=== PATIENT | female | born 1945 | race Caucasian/White ===

== ENCOUNTER → 2016-11-03 | Outpatient (CLI) | payer OTHER ==
[~2016-11-03] MED LIST: IOPAMIDOL (ISOVUE-300) 100 ML BTL IV ONE
--- NOTE | 2016-11-03 17:00 | CT ---
CT Chest, With Contrast Indication: Follow up pulmonary nodule. Technique: 5-mm thick collimated slices were obtained through the chest following uneventful adminis tration of 90 mL of Isovue-300. Sagittal multiplanar reconstructions were performed of the thoracic spine. Dose reduction techniques were utilized. Findings: The triangular-shaped subpleural 4-mm right middle lobe pulmonary nodule on image #144 of series #4 is unchanged since May 2012. The previously referenced 3-mm right upper lobe nodule is no longer evident. A new round noncalcified 3-mm pulmonary nodule has developed in the superior segm ent right lower lobe on image #93 of series #4. No other pulmonary nodules. The lungs remain well a erated and clear. The heart size is normal. The thoracic aorta is normal caliber. Calcified coronary plaque is grossl y unchanged. No enlarged lymph node or mass has developed throughout the axilla, mediastinum, pulmonary sally, or i justin portion of the upper abdomen. No pericardial or pleural effusion. No bone lesion or compressi on fracture. A loop recorder in the subcutaneous fat of the anterior left chest wall and a small hia gayla hernia are unchanged. Impression: 1. New 3-mm probably benign pulmonary nodule since August 2016. Recommend follow-up noncontrast c hest CT in six months utilizing low-dose protocol. 2. A 4-mm right middle lobe pulmonary nodule, unchanged since May 2012. 3. No acute process. Comment: The results were conveyed shortly after study completion.
== END ==
LOC: FIMAGING 09:37
PROVIDERS: ATTEND Internal Medicine
DX: R91.1 Solitary pulmonary nodule (principal); I10 Essential (primary) hypertension
CPT/HCPCS: 71260; Q9967

== ENCOUNTER → 2017-01-02 | Outpatient (CLI) | payer OTHER | LOC: FIMAGING 10:19 | PROVIDERS: ATTEND Internal Medicine | DX: M81.0 Age-related osteoporosis without current pathological fracture (principal) ==

== ENCOUNTER 2017-05-10 10:40 | Emergency (ER) | payer OTHER ==
--- NOTE | 2017-05-10 10:53 | EDPHY ---
H & P Time Seen by Provider: 05/10/17 10:48 HPI/ROS: CHIEF COMPLAINT: Heavy hard and irregular heartbeat HISTORY OF PRESENT ILLNESS: Patient is a history of an ablation and cardiac stenting. She sees [facility]. She has an implanted loop recorder was getting a CT scan for a lung nodule today and approximately 10:35 a.m. felt her heart "have heavy heartbeats" which were fast and irregular, not associated with chest pain or syncope or shortness of breath. REVIEW OF SYSTEMS: Eye: no change in vision ENT: no sore throat Cardiac: HPI Pulmonary: no cough or SOB Abdomen: no vomiting, diarrhea, abdominal pain Musculoskeletal: no back pain Skin: no rash Neuro: no headache Constitutional: no fever : no urinary symptoms A comprehensive 10 point review of systems is otherwise negative aside from elements mentioned in the history of present illness. PAST MEDICAL HISTORY: Includes hypertension, childhood polio, hyperlipidemia, cholecystectomy. Cardiac stenting and ablation. Loop recorder. Social history: General Appearance: Alert and conversant, cooperative. Eyes: No scleral icterus. ENT, Mouth: Normal mucous membranes. Respiratory: Normal respiratory effort, breath sounds equal, lungs are clear to auscultation. Cardiovascular: Regular rate and rhythm. Frequent extrasystoles. Gastrointestinal: Abdomen is soft and non tender. Neurological: Alert and oriented x3. Normally conversant. Face symmetric, normal movement and sensation in all extremities. Skin: Warm and dry, no rashes. Musculoskeletal: No peripheral edema and no joint swelling. Psychiatric: Not agitated. Emergency Department course/MDM: Annikafrancisca contacted to interrogate her recorder. EKG show PACs which are certainly a possible cause for her symptoms. Plan for chemistries and troponin. Per Linq interrogator, only artifact, no malignant dysrhythmia. 1237: Discussed with Dora Briscoe from [facility]. Agrees to disposition, will follow up as outpatient. Calcium noted to be low but also albumin is low. I think this can be safely followed up as an outpatient. I think the likelihood of malignant dysrhythmia is low. I think the likelihood of acute coronary syndrome is low. Smoking Status: Never smoked Constitutional: Initial Vital Signs Temperature (C) 36.7 C 05/10/17 10:42 Heart Rate 82 05/10/17 10:42 Respiratory Rate 18 05/10/17 10:42 Blood Pressure 138/72 H 05/10/17 10:42 O2 Sat (%) 98 05/10/17 10:42 O2 Delivery Mode Room Air Allergies/Adverse Reactions: atorvastatin calcium [From Lipitor] Allergy (Severe, Verified 05/10/17 10:41) myalgia gluten Allergy (Severe, Verified 05/10/17 10:41) Milk Containing Products [dairy] Allergy (Severe, Verified 05/10/17 10:41) Slope And Derivatives Allergy (Verified 05/10/17 10:41) Home Medications: Medication Instructions Recorded Herbals/Supplements -Info Only 1 each PO DAILY 04/20/13 Simvastatin [Zocor] 10 mg PO DAILY 08/23/15 Ascorbic Acid [Vitamin C 500 mg 500 mg PO BID@,05/08/16 (*)] Aspirin EC [Aspirin EC 81 mg (*)] 81 mg PO DAILY 05/08/16 Calcium Carbonate [Oyster Shell 500 mg PO BID@,05/08/16 Calcium 500 mg (*)] Cholecalciferol Vit D3 [Vitamin D3 10,000 units PO MOTUWETHFR 05/08/16 2000 units tab (OTC)] Vitamin B Complex [B Complex] 1 each PO DAILY 08/16/16 Acetaminophen [Tylenol 325mg (*)] 325 - 650 mg PO Q4HRS PRN #0 tab 08/18/16 Clopidogrel Bisulfate [Plavix (*)] 75 mg PO DAILY #30 tab 08/20/16 Simvastatin [Zocor] 20 mg PO DAILY #30 08/20/16 Bystolic 05/10/17 Medical Decision Making - Diagnostics EKG Interpretation: 12-lead EKG interpreted by me; official reading is in trace master. My interpretation is sinus rhythm rate 79 with multiple atrial premature complexes and partial left bundle branch block Differential Diagnosis: Differential for sensation of palpitations considered including but not limited to ventricular tachycardia, atrial fibrillation, PVC, Pac - Data Points Laboratory Results: Laboratory Results 05/10/17 11:07 05/10/17 11:07 05/10/17 05/10/17 05/10/17 11:07 11:07 11:07 WBC 8.12 10^3/uL 10^3/uL (3.80-9.50) RBC 4.53 10^6/uL 10^6/uL (4.18-5.33) Hgb 14.2 g/dL g/dL (12.6-16.3) Hct 42.6 % % (38.0-47.0) MCV 94.0 fL fL (81.5-99.8) MCH 31.3 pg pg (27.9-34.1) MCHC 33.3 g/dL g/dL (32.4-36.7) RDW 13.9 % % (11.5-15.2) Plt Count 305 10^3/uL 10^3/uL (150-400) MPV 9.8 fL fL (8.7-11.7) Neut % (Auto) 58.7 % % (39.3-74.2) Lymph % (Auto) 27.5 % % (15.0-45.0) [place] % (Auto) 8.7 % % (4.5-13.0) Eos % (Auto) 3.7 % % (0.6-7.6) Baso % (Auto) 1.2 % % (0.3-1.7) Nucleat RBC Rel Count 0.0 % % (0.0-0.2) Absolute Neuts (auto) 4.76 10^3/uL 10^3/uL (1.70-6.50) Absolute Lymphs (auto) 2.23 10^3/uL 10^3/uL (1.00-3.00) Absolute Monos (auto) 0.71 10^3/uL 10^3/uL (0.30-0.80) Absolute Eos (auto) 0.30 10^3/uL 10^3/uL (0.03-0.40) Absolute Basos (auto) 0.10 10^3/uL 10^3/uL (0.02-0.10) Absolute Nucleated RBC 0.00 10^3/uL 10^3/uL (0-0.01) Immature Gran % 0.2 % % (0.0-1.1) Immature Gran # 0.02 10^3/uL 10^3/uL (0.00-0.10) Sodium 143 mEq/L mEq/L (134-144) Potassium 3.3 mEq/L L mEq/L (3.5-5.2) Chloride 117 mEq/L H mEq/L (97-110) Carbon Dioxide 20 mEq/l L mEq/l (22-31) Anion Gap 6 mEq/L L mEq/L (8-16) BUN 13 mg/dL mg/dL (7-23) Creatinine 0.6 mg/dL mg/dL (0.6-1.0) Estimated GFR > 60 Glucose 68 mg/dL L mg/dL (70-100) Calcium 7.3 mg/dL L mg/dL (8.5-10.4) Troponin I < 0.012 ng/mL ng/mL (0-0.034) Albumin 2.8 g/dL L g/dL (3.5-5.0) Departure - Departure Disposition: Home, Routine, Self-Care Clinical Impression: Palpitations, PAC (premature atrial contraction) Condition: Good Instructions: Palpitations (ED), Premature Atrial Contractions (ED) Additional Instructions: Your noted to have a low calcium and albumin level on blood testing today. This probably means that your calcium level is relatively normal, but your total body protein is low. Follow-up in the next week or 2 with your doctor about this. I discussed your case with [facility] and they will call you to follow-up this week. Referrals: Gracie Barton MD [Primary Care Provider] - As per Instructions
--- NOTE | 2017-05-10 10:58 | CPEKG ---
Heart Rate: 79 RR Interval: 759 P-R Interval: 160 QRSD Interval: 108 QT Interval: 408 QTC Interval: 468 P [place]: -4 QRS [place]: -12 T Wave [place]: 82 EKG Severity - ABNORMAL ECG - EKG Impression: SINUS RHYTHM EKG Impression: MULTIPLE ATRIAL PREMATURE COMPLEXES EKG Impression: INCOMPLETE LEFT BUNDLE BRANCH BLOCK EKG Impression: ANTERIOR Q WAVES, POSSIBLY DUE TO ILBBB Electronically Signed By: Fadi Washington 10-May-2017 10:59:51
[2017-05-10 11:19] LABS: % IMMATURE GRANULYOCYTES 0.2 % (0.0-1.1); ABSOLUTE IMMATURE GRANULOCYTES 0.02 10^3/uL (0.00-0.10); ADD DIFF? NO; ADD MORPH? NO; ADD SCAN? NO; ATYPICAL LYMPHOCYTE FLAG 10 (0-99); FRAGMENT RBC FLAG 0 (0-99); HEMATOCRIT 42.6 % (38.0-47.0); HEMOGLOBIN 14.2 g/dL (12.6-16.3); LEFT SHIFT FLG 0 (0-99); LIPEMIA HEMOLYSIS FLAG 80 (0-99); MEAN CELL HEMOGLOBIN 31.3 pg (27.9-34.1); MEAN CELL HEMOGLOBIN CONCENTR. 33.3 g/dL (32.4-36.7); MEAN PLATELET VOLUME 9.8 fL (8.7-11.7); PLATELET CLUMPS FLAG 0 (0-99); PLATELET COUNT 305 10^3/uL (150-400); RED BLOOD CELL COUNT 4.53 10^6/uL (4.18-5.33); RED CELL DISTRIBUTION WIDTH 13.9 % (11.5-15.2)
[2017-05-10 11:32] LABS: ANION GAP 6 mEq/L (8-16); CALCIUM 7.3 mg/dL (8.5-10.4); CARBON DIOXIDE 20 mEq/l (22-31); CHLORIDE 117 mEq/L (97-110); CREATININE 0.6 mg/dL (0.6-1.0); GLOMERULAR FILTRATION RATE > 60; GLUCOSE 68 mg/dL (70-100); POTASSIUM 3.3 mEq/L (3.5-5.2); SODIUM 143 mEq/L (134-144)
[2017-05-10 11:44] LABS: TROPONIN I < 0.012 ng/mL (0-0.034)
[2017-05-10 12:08] LABS: ALBUMIN 2.8 g/dL (3.5-5.0)
[2017-05-10 12:16] VITALS: RESP 16
[2017-05-10 13:02] VITALS: BP 132/76; PULSE 71; TEMP 98.1; O2SAT 98
== END 2017-05-10 13:02 | disposition home or self-care (01) ==
DX: I49.1 Atrial premature depolarization (principal); I10 Essential (primary) hypertension; Z79.82 Long term (current) use of aspirin; Z95.5 Presence of coronary angioplasty implant and graft

== ENCOUNTER → 2017-05-10 | Outpatient (CLI) | payer OTHER | LOC: FIMAGING 09:51 | PROVIDERS: ATTEND Internal Medicine Critical Care Medicine | DX: R91.8 Other nonspecific abnormal finding of lung field (principal); J45.909 Unspecified asthma, uncomplicated ==

== ENCOUNTER 2017-05-26 11:20 | Inpatient (IN) | payer OTHER ==
--- NOTE | 2017-05-26 11:27 | EDPHY ---
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 The patient has a history of wall motion abnormality thought to be secondary to plaque rupture after an EP procedure, which resulted in stent in August. Since that time she has complained of chest pain with exertion. This morning she was undergoing an ETT in [facility] and again developed exertional sub-sternal chest pain. She was sent immediately to the ED for further evaluation and likely catheterization. REVIEW OF SYSTEMS: Aside from elements discussed in the HPI, a comprehensive 10-point review of systems was reviewed and is negative. PMH:CAD, SVT SOCIAL HISTORY: . Denies alcohol or drug abuse. PHYSICAL EXAM: General:Patient is alert, in no acute distress. ENT:Eyes are normal to inspection. ENT inspection normal. Neck: Normal inspection. Full range of motion. Respiratory:No respiratory distress. Breath sounds normal bilaterally. Cardiovascular: Regular rate and rhythm. Strong peripheral pulses. Normal cap refill. Abdomen:The abdomen is nontender to palpation. There are no peritoneal signs. There are normal bowel sounds. Back: Normal to inspection. No tenderness to palpation. Skin: Normal color. No rash. Warm and dry. Extremities: Normal appearance. Full range of motion. Neuro: Oriented x3. Normal motor function. Normal sensory function. ED Course: 11:[address] Walsh - he will evaluate the patient in the ED. MDM: This patient presents with exertional chest pain during ETT. Her ECG does not reveal STEMI and her troponin is negative. Cardiology would like to take patient urgently to medical laboratory specialist. - Data Points Laboratory Results: 05/26/17 05/26/17 11:30 11:30 WBC Pending RBC Pending Hgb Pending Hct Pending MCV Pending MCH Pending MCHC Pending RDW Pending Plt Count Pending MPV Pending Neut % (Auto) Pending Lymph % (Auto) Pending [place] % (Auto) Pending Eos % (Auto) Pending Baso % (Auto) Pending Nucleat RBC Rel Count Pending Absolute Neuts (auto) Pending Absolute Lymphs (auto) Pending Absolute Monos (auto) Pending Absolute Eos (auto) Pending Absolute Basos (auto) Pending Absolute Nucleated RBC Pending Immature Gran % Pending Immature Gran # Pending Sodium Pending Potassium Pending Chloride Pending Carbon Dioxide Pending Anion Gap Pending BUN Pending Creatinine Pending Estimated GFR Pending Glucose Pending Calcium Pending Troponin I Pending General Time Seen by Provider: 05/26/17 11:25 Initial Vital Signs: Initial Vital Signs Temperature (C) 36.5 C 05/26/17 11:22 Heart Rate 88 05/26/17 11:22 Respiratory Rate 16 05/26/17 11:22 Blood Pressure 154/72 H 05/26/17 11:22 O2 Sat (%) 98 05/26/17 11:22 O2 Delivery Mode Room Air O2 (L/minute) 2 Allergies/Adverse Reactions: atorvastatin calcium [From Lipitor] Allergy (Severe, Verified 05/26/17 15:22) myalgia gluten Allergy (Severe, Verified 05/26/17 15:22) Milk Containing Products [dairy] Allergy (Severe, Verified 05/26/17 15:22) [place]ingley And Derivatives Allergy (Verified 05/26/17 15:22) Home Medications: Medication Instructions Recorded Herbals/Supplements -Info Only 1 each PO DAILY 04/20/13 Aspirin EC [Aspirin EC 81 mg (*)] 81 mg PO DAILY 05/08/16 Calcium Carbonate [Oyster Shell 500 mg PO BID@,12 05/08/16 Calcium 500 mg (*)] Clopidogrel Bisulfate [Plavix (*)] 75 mg PO DAILY #30 tab 08/20/16 Ascorbic Acid [Vitamin C 500 mg 1,000 mg PO DAILY 05/26/17 (*)] Cholecalciferol Vit D3 [Vitamin D3 10,000 units PO MWF 05/26/17 (*)] Fluticasone/Salmeter 250/50Mcg 1 puffs IH BID PRN 05/26/17 [Advair 250/50 (*)] Nebivolol HCl [Bystolic 5 mg (*)] 2.5 mg PO DAILY 05/26/17 Rosuvastatin Calcium [Crestor 20mg 5 mg PO DAILY 05/26/17 (*)] Departure - Departure Disposition: To OP Cath/Surgery Clinical Impression: Chest pain Condition: Fair
--- NOTE | 2017-05-26 11:35 | CPEKG ---
Heart Rate: 73 RR Interval: 822 P-R Interval: 172 QRSD Interval: 110 QT Interval: 392 QTC Interval: 432 P [place]: 65 QRS [place]: -15 T Wave [place]: 84 EKG Severity - ABNORMAL ECG - EKG Impression: SINUS RHYTHM EKG Impression: NONSPECIFIC INTRAVENTRICULAR CONDUCTION DELAY EKG Impression: CONSIDER ANTEROSEPTAL INFARCT Electronically Signed By: Damien Carrizales 27-May-2017 08:15:25
[2017-05-26 11:48] LABS: % IMMATURE GRANULYOCYTES 0.2 % (0.0-1.1); ABSOLUTE IMMATURE GRANULOCYTES 0.02 10^3/uL (0.00-0.10); ADD DIFF? NO; ADD MORPH? NO; ADD SCAN? NO; ATYPICAL LYMPHOCYTE FLAG 10 (0-99); FRAGMENT RBC FLAG 0 (0-99); HEMATOCRIT 44.3 % (38.0-47.0); LEFT SHIFT FLG 0 (0-99); LIPEMIA HEMOLYSIS FLAG 90 (0-99); MEAN CELL HEMOGLOBIN 31.3 pg (27.9-34.1); MEAN CELL HEMOGLOBIN CONCENTR. 33.9 g/dL (32.4-36.7); MEAN CELL VOLUME 92.5 fL (81.5-99.8); MEAN PLATELET VOLUME 9.6 fL (8.7-11.7); PLATELET CLUMPS FLAG 10 (0-99); PLATELET COUNT 282 10^3/uL (150-400); RED BLOOD CELL COUNT 4.79 10^6/uL (4.18-5.33); RED CELL DISTRIBUTION WIDTH 13.8 % (11.5-15.2)
[2017-05-26] MEDS ORDERED: MIDAZOLAM 2 MG/2 ML VIAL ONE ×2 (12:14→13:27)
[2017-05-26] MEDS ORDERED: fentaNYL 100 MCG/2 ML INJ ONE (12:14)
[2017-05-26] MEDS ORDERED: LIDOCAINE 1% 300 MG/30 ML SDV ONE (12:14)
[2017-05-26] MEDS ORDERED: HEPARIN 10,000 UNIT/10 ML MDV ONE (12:15)
[2017-05-26] MEDS ORDERED: IOPAMIDOL (ISOVUE-370) 150 ML BTL IV ONE (12:15)
[2017-05-26] MEDS ORDERED: VERAPAMIL 5 MG/2 ML VIAL ONE (12:15)
[2017-05-26 12:30] LABS: ANION GAP 12 mEq/L (8-16); CALCIUM 9.6 mg/dL (8.5-10.4); CARBON DIOXIDE 22 mEq/l (22-31); CHLORIDE 106 mEq/L (97-110); CREATININE 0.7 mg/dL (0.6-1.0); GLOMERULAR FILTRATION RATE > 60; GLUCOSE 83 mg/dL (70-100); POTASSIUM 4.1 mEq/L (3.5-5.2); SODIUM 140 mEq/L (134-144)
[2017-05-26 12:41] LABS: TROPONIN I < 0.012 ng/mL (0.000-0.034)
[2017-05-26] MEDS ORDERED: CLOPIDOGREL BISULFATE 75 MG TAB ONE (13:32)
[2017-05-26] MEDS ORDERED: NITROGLYCERIN 1,500 MCG/15 ML VIAL MISC ONE (13:33)
[2017-05-26] MEDS ORDERED: BIVALIRUDIN 250 MG/5 ML VIAL IV ONE (13:33)
[2017-05-26] MEDS ORDERED: ACETAMINOPHEN 325 MG TAB PO PRN (15:22)
[2017-05-26] MEDS ORDERED: NITROGLYCERIN 0.4 MG BTL SL PRN (15:22)
[2017-05-26] MEDS ORDERED: ATROPINE SULFATE 1 MG/10 ML SYR IVP PRN (15:22)
[2017-05-26] MEDS ORDERED: NS 1,000 ML IV SCH (15:30)
[2017-05-26] MEDS ORDERED: FLUTICASONE/SALMETER 250/50MCG DISKUS IH PRN (15:32)
--- NOTE | 2017-05-26 15:49 | PDDXCAT ---
Diagnostic Cath Note - . Date: 05/26/17 Community Health Advisor: Nico Indication: other (71-year-old female with history of PCI of the LAD in August 2016. Recent recurrence of chest discomfort. Exercise treadmill test earlier today positive for chest discomfort and ST segment depression.) - Procedure Access: right groin Procedure: left heart catheterization, coronary angiography, left ventriculogram - Materials Left Heart Cath size: 6F Left Heart Cath materials: standard multipack (JL4, JR4, pigtail) - Findings-Left Heart Catheterization LM: Normal. LAD: Fluoroscopy reveals a previously stented segment in the LAD. Angiography demonstrates that the stented segment is 100% occluded with high grade restenosis. The diagonal branch which arose from the stented segment is also occluded. There are [id number] and [id number]-nj-[id number] collaterals to the distal portions of the LAD and diagonal. LCX: Mild irregularities. RCA: Mild irregularities. EDP: 13 mmHg LVEF: 45% Wall motion: Anteroapical hypokinesis. Complications: None Estimated blood loss: <50ml Closure method: manual pressure Assessment: 1) Ischemic cardiomyopathy with mildly reduced LV systolic function. 2) Coronary artery disease as described above. Plan: The patient has developed severe restenosis with total occlusion of her previously placed drug-coated stent at only 9 months following her procedure. The decent caliber and relatively modest length of her stent, should have predicted that she would be at the low end of the range of risk for restenosis. Repeat PCI could be performed. However, I have concerns about repeat restenosis. I am not confident that percutaneous revascularization can provide her with a durable result. At this point we will admit her for observation. I will discuss with her tomorrow the option of coronary bypass grafting. If she declines to consider a surgical option, repeat PCI will be performed. Patient Problems: Problems Problem Status Onset Chest pain Acute AVNRT (AV moe re-entry tachycardia) Acute Atrial flutter Acute Decrease in appetite Acute Dyspnea Acute Generalized weakness Acute Nausea Acute Syncope Acute
[2017-05-27] MEDS: ASPIRIN EC 81 MG TAB PO SCH (08:35)
[2017-05-27] MEDS: ASCORBIC ACID 500 MG TAB PO SCH (08:35)
[2017-05-27] MEDS: CALCIUM CARBONATE 500 MG TAB PO SCH ×2 (08:36→11:20)
[2017-05-27] MEDS: ROSUVASTATIN CALCIUM 10 MG TAB PO SCH (08:36)
[2017-05-27] MEDS: NEBIVOLOL HCL 5 MG TAB PO SCH (08:37)
[2017-05-27] MEDS ORDERED: ROSUVASTATIN CALCIUM 20 MG TAB PO SCH (09:00)
--- NOTE | 2017-05-27 12:12 | PDCARPN ---
Cardiology Progress Note Assessment/Plan: Coronary Artery Disease- has severe restenosis of a single drug-coated stent in the mid LAD just 9 months after placement. Has had recurrent anginal quality chest discomfort. Discussed extensively with patient and family. If she were to undergo repeat PCI, I think her long-term prospects for patency would be significantly reduced. We will consult CT surgery for CABG. Ischemic Cardiomyopathy- LVEF is approximately 45%. This is similar to her LV function at the time of her PCI last August. A subsequent echocardiogram performed in the office suggested that her LV function had improved somewhat following her PCI. No clinical signs of CHF. Hypertension- adequately controlled. SVT/PACs- h/o RF ablation for AVNRT; no recurrent SVT; does notice her PACs. 05/27/17 12:09 Subjective: No complaints. Objective: Vital Signs (8 Hrs) Temp Pulse Resp BP Pulse Ox 05/27/17 08:00 36.4 C 66 23 H 126/71 H 95 Intake/Output (24 Hrs) 05/26/17 05/27/17 05/28/17 05:59 05:59 05:59 Intake Total 1550 Balance 1550 Intake: Oral (ml) 550 IV Infused (ml) 1000 Ns 1,000 ml @ 100 mls/hr 1000 IV CONT FÉLIX Rx#: [id number] Other: Weight 74.843 kg Intake Quantity Yes Sufficient Number of Voids 2 Toilet 2 Result Diagrams: 05/26/17 11:30 05/26/17 12:15 Cardiac Labs: Cardiac Lab Results (72 Hrs) 05/26/17 12:15 Troponin I < 0.012 - Physical Exam Constitutional: WDWN, no apparent distress Eyes: anicteric sclera Ears, Nose, Mouth, Throat: moist mucous membranes Cardiovascular: regular rate and rhythm, no murmurs, no rubs, no gallops Respiratory: clear to auscultate bilat Gastrointestinal: normoactive bowel sounds, no tenderness, no masses Skin: no rashes, no edema Neurologic: AAOx3 Psychiatric: not anxious ICD10 Worksheet Patient Problems: Problems Problem Status Onset Chest pain Acute AVNRT (AV moe re-entry tachycardia) Acute Atrial flutter Acute Decrease in appetite Acute Dyspnea Acute Generalized weakness Acute Nausea Acute Syncope Acute
--- NOTE | 2017-05-27 12:23 | GCON ---
[f rep st] CONSULTATION DATE OF CONSULTATION: 05/27/2017 IMPRESSION: 1. Unstable angina pectoris, status post stenting to the left anterior descending approximately 9 m onths prior. 2. History of atrial tachycardia, status post ablation. 3. Asthma by history. 4. Status post recent cholecystectomy. 5. Status post intussusception as a child. RECOMMENDATIONS: This patient should undergo coronary artery revascularization on this admission du e to crescendo angina status post stenting with a subtotal occlusion of the LAD with collateral flow . Risks and complications were reviewed at length with the patient, her daughter, and her b y telephone. They were well-informed quite cooperative, and understood the risks and complications associated with the procedure as explained. We will obtain carotid ultrasounds and a chest x-ray pr eoperatively. HISTORY: This is a pleasant 71-year-old female who had a PCI of the LAD in August. She also had an ablation for PAT at that time. MEDICAL HISTORY: As stated. SURGERIES: As stated. SOCIALLY: She drinks 1 glass of wine per day, never more. She had minimal exposure to cigarette ab use many years ago. ALLERGIES: She is allergic to gluten. REVIEW OF SYSTEMS: At the present time, all 10 systems are unremarkable except for admitting compla ints. MEDICATIONS: Reviewed. Plavix has been held for 3 days at present. PHYSICAL EXAMINATION: GENERAL: This is a slightly overweight elderly female sitting in a chair, ac companied by her daughter, well informed, quite pleasant, in no apparent distress. VITAL SIGNS: Te mp is 37.6, blood pressure 126/71, pulse 66, respirations 16 on room air with 95% sat. HEENT: Norm ocephalic. PERRLA. EOMI. NECK: Without bruit. Carotid ultrasound is pending. LUNGS: Clear. H EART: Rate is regular without murmur. LUNGS: Clear. ABDOMEN: Protuberant, nontender. Bowel lizette nds are active. RECTAL/GENITAL: Exams were deferred. NEUROLOGIC: She is grossly intact. She has some varicosities in the right lower leg. Pedal pulses are 2+. There is no edema. Please see cath report and labs for details. /[id number]/MODL
--- NOTE | 2017-05-27 12:33 | GHP ---
[f rep st] HISTORY AND PHYSICAL DATE OF ADMISSION: 05/26/2017 REASON FOR ADMISSION: 1. Coronary artery disease, with a history of prior PCI. 2. Recurrent anginal quality chest discomfort. 3. Abnormal exercise treadmill test. HISTORY OF PRESENT ILLNESS: The patient is a 71-year-old female with a history of coronary artery d isease and SVT. In August 2016, she underwent an electrophysiology ablation procedure for SVT by Dr. Carrizales. She subsequently developed significant chest discomfort and evidence for coronary ischemia . She was taken to the cardiac laboratory equipment installer by Dr. Pierre Leiva and was found to have a high-grade steno sis of 80% to 90% in the mid left anterior descending, immediately adjacent to the origin of a princ ipal diagonal branch. She underwent PCI, with placement of a single 3.0 x 24 mm Synergy drug-coated stent in the mid LAD. There was no significant ostial compromise of the diagonal branch. The tim ent had done well subsequently. She was recently bothered with irregular heartbeats. She was scheduled for an interrogation of her [employer] LINQ implantable event recorder. At the time of that interrogation, she mentioned to the device nurse that she had also been experiencing episodes of chest discomfort and pressure with phys ical activity. On that basis, Dr. Carrizales recommended that she undergo an exercise stress test. That s tudy was performed on May 26. She developed chest discomfort and ST segment depression early in exercise. On that basis, she was sent to the [facility] with a plan to under go cardiac catheterization. PAST MEDICAL HISTORY: In addition to her coronary artery disease and arrhythmia history, she had a DVT in 1994, psoriasis, hypertension, hiatal hernia, hyperlipidemia and osteoporosis. MEDICATIONS: Her home medications consist of aspirin 81 mg daily, Bystolic 2.5 mg daily, alendronat e 70 mg once weekly, CoQ10 and Crestor 5 mg daily. ALLERGIES: Lipitor. FAMILY HISTORY: There is a history of CAD in her mother. SOCIAL HISTORY: She is . She has four adult offspring. She is a nonsmoker and does not con sume significant amounts of alcohol. REVIEW OF SYSTEMS: Apart from the palpitations and chest discomfort that prompted this hospital enc ounter, a 10-point review was negative. PHYSICAL EXAMINATION: VITAL SIGNS: Heart rate 88, blood pressure 154/72, room air O2 saturation 98 %. GENERAL: A well-developed, well-nourished woman in no acute distress. She is alert and oriente d x3. HEAD AND NECK: No scleral icterus. Mucous membranes moist. Carotid pulses 2+, without brui ts. CHEST: Lung payton clear to auscultation bilaterally. CARDIAC: Regular rate and rhythm, with a normal S1 and S2. There is no murmur or gallop. ABDOMEN: Soft, nontender, nondistended, with n ormal bowel sounds. EXTREMITIES: 2+ pulses and no peripheral edema. LABORATORY DATA: Sodium 140, potassium 4.1. BUN and creatinine 13 and 0.7. Troponin was normal at less than 0.012. Her CBC is normal. ASSESSMENT: This is a 71-year-old woman with a history of coronary artery disease, with PCI of the LAD performed 9 months ago. She has had recurrent anginal quality chest discomfort, and an exercise treadmill test was abnormal. She just underwent cardiac catheterization and was found to have high -grade restenoses of the mid LAD stent, with essentially 100% occlusion; this also involves the diag onal branch that arises from the stented segment. Her left ventricular ejection fraction is approxi mately 45%, with anteroapical hypokinesis. She does have some minimal [id number] collateralizati on of the LAD. PLAN: At this point, the patient will be placed on the telemetry floor. I will have a discussion w ith the patient and her family about options for a repeat attempt at percutaneous coronary intervent ion versus coronary artery bypass grafting. Based on the aggressive restenoses of her stent within 9 months, I am dubious about the potential for long-term, durable, good revascularization result fro m percutaneous techniques. However, if she is adamant about not wanting surgery, a repeat attempt a t PCI will certainly be entertained. /[id number]/MODL
[2017-05-27 13:15] LABS: HEMATOCRIT 39.5 % (38.0-47.0); HEMOGLOBIN 13.4 g/dL (12.6-16.3); MEAN CELL HEMOGLOBIN 31.5 pg (27.9-34.1); MEAN CELL HEMOGLOBIN CONCENTR. 33.9 g/dL (32.4-36.7); MEAN CELL VOLUME 92.7 fL (81.5-99.8); RED BLOOD CELL COUNT 4.26 10^6/uL (4.18-5.33); RED CELL DISTRIBUTION WIDTH 13.9 % (11.5-15.2)
[2017-05-27] MEDS: MUPIROCIN 2% 22 GM OINT NS SCH (22:50)
[2017-05-28] MEDS ORDERED: NS 1,000 ML IV ONE (06:00)
[2017-05-28] MEDS ORDERED: VERAPAMIL 5 MG, NITROGLYCERIN 2.5 MG, HEPARIN 500 UNIT, SODIUM BICARBONATE 0.2 MEQ in L... MISC ONE (06:00)
[2017-05-28] MEDS: ASCORBIC ACID 500 MG TAB PO SCH (07:56)
[2017-05-28] MEDS: CALCIUM CARBONATE 500 MG TAB PO SCH ×2 (07:57→11:42)
[2017-05-28] MEDS: ASPIRIN EC 81 MG TAB PO SCH (07:57)
[2017-05-28] MEDS: NEBIVOLOL HCL 5 MG TAB PO SCH (08:02)
[2017-05-28] MEDS: ROSUVASTATIN CALCIUM 10 MG TAB PO SCH (08:05)
[2017-05-28] MEDS: MUPIROCIN 2% 22 GM OINT NS SCH ×2 (08:06→20:07)
[2017-05-28] MEDS ORDERED: CHLORHEXIDINE GLUC HIBICLENS 118 ML BTL TP SCH (21:00)
[2017-05-29 02:01] LABS: HEMOGLOBIN A1C 5.8 % (4.0-6.0)
[2017-05-29] MEDS ORDERED: ceFAZolin 2 GM/DEXTROSE 100 ML IV ONE (06:00)
[2017-05-29] MEDS ORDERED: INSULIN REGULAR HUMAN 100 UNIT in NS 100 ML IV ONE (06:00)
[2017-05-29] MEDS ORDERED: NOREPINEPHRINE BITARTRATE 16 MG in NS 250 ML IV ONE (06:00)
[2017-05-29] MEDS ORDERED: VERAPAMIL 5 MG, NITROGLYCERIN 2.5 MG, HEPARIN 500 UNIT, SODIUM BICARBONATE 0.2 MEQ in L... MISC ONE (06:00)
[2017-05-29] MEDS ORDERED: AMINOCAPROIC ACID 5 GM/20 ML VIAL IV ONE (06:00)
[2017-05-29] MEDS ORDERED: MANNITOL 25% 12.5 GM/50 ML VIAL IV ONE (06:00)
[2017-05-29] MEDS ORDERED: MUPIROCIN 2% 22 GM OINT NS ONE (06:00)
[2017-05-29] MEDS ORDERED: CITRATE DEXTROSE SOLN 500 ML BAG MISC ONE (06:00)
[2017-05-29] MEDS ORDERED: LIDOCAINE 1% 5 ML SDV ID PRN (06:00)
[2017-05-29] MEDS ORDERED: PHENYLEPHRINE HCL 50 MG in NS 250 ML IV ONE (06:00)
[2017-05-29] MEDS ORDERED: SODIUM BICARBONATE 20 MEQ, LIDOCAINE 1% 10 ML in NORMOSOL-R 1,000 ML MISC ONE (06:00)
[2017-05-29] MEDS ORDERED: niCARdipine/NACL 200 ML IV ONE (06:00)
[2017-05-29] MEDS ORDERED: CALCIUM CHLORIDE 1 GM/10 ML INJ ONE (06:32)
[2017-05-29] MEDS ORDERED: PROTAMINE SULFATE 50 MG/5 ML VIAL IVP ONE (06:32)
[2017-05-29] MEDS ORDERED: ALBUMIN 5% 250 ML BOTTLE IV ONE ×2 (06:32→09:53)
[2017-05-29] MEDS ORDERED: NA BICARBONATE 50 MEQ/50 ML VIAL ONE ×2 (06:33→12:07)
[2017-05-29] MEDS ORDERED: AMINOCAPROIC ACID 5 GM/20 ML VIAL ONE (06:33)
[2017-05-29] MEDS ORDERED: LIDOCAINE 2% 100 MG/5 ML SYR ONE ×2 (06:33→07:16)
[2017-05-29] MEDS ORDERED: POTASSIUM Cl (KCl) 20 MEQ/50 ML BAG IV ONE (06:33)
[2017-05-29] MEDS ORDERED: DOPamine/DEXTROSE/250 ML BAG IV ONE ×2 (06:33→16:44)
[2017-05-29] MEDS ORDERED: CITRATE DEXTROSE SOLN 500 ML BAG ONE (06:33)
[2017-05-29] MEDS ORDERED: niCARdipine/NACL/200 ML BAG IV ONE (06:33)
[2017-05-29] MEDS ORDERED: MILRINONE/DEXTROSE/100 ML BAG IV ONE (06:33)
[2017-05-29] MEDS ORDERED: AMIODARONE HCL 150 MG/3 ML VIAL ONE (06:34)
[2017-05-29] MEDS ORDERED: methylPREDNISolone SOD SUCC 1 GM/8 ML VIAL ONE (06:34)
[2017-05-29] MEDS ORDERED: MAGNESIUM SULFATE 1 GM/2 ML VIAL ONE (06:34)
[2017-05-29] MEDS ORDERED: ADENOSINE 6 MG/2 ML VIAL ONE (06:34)
[2017-05-29] MEDS ORDERED: HEPARIN 10,000 UNIT/10 ML MDV ONE (06:35)
[2017-05-29] MEDS ORDERED: ceFAZolin 1 GM VIAL ONE (06:35)
[2017-05-29] MEDS ORDERED: CEFAZOLIN 2 GM/DEXTROSE/100 ML BAG IV ONE (06:44)
[2017-05-29] MEDS ORDERED: LR 1,000 ML IV ONE (06:51)
[2017-05-29] MEDS ORDERED: MIDAZOLAM 2 MG/2 ML VIAL IVP ONE (07:01)
--- NOTE | 2017-05-29 07:01 | PDANEPAE ---
ANE History of Present Illness 71 yo for CABG EF 50% h/o AVNRT s/p ablatio ANE Past Medical History - Cardiovascular History Hx Hypertension: Yes Hx Arrhythmias: Yes Hx Chest Pain: No Hx Coronary Artery / Peripheral Vascular Disease: Yes Hx CHF / Valvular Disease: No Hx Palpitations: Yes Cardiovascular History Comment: PVC'S SEES DR SAMPSON. HYPERLIPIDEMIA - Pulmonary History Hx COPD: No Hx Asthma/Reactive Airway Disease: No Hx Recent Upper Respiratory Infection: No Hx Oxygen in Use at Home: No Hx Sleep Apnea: No Sleep Apnea Screening Result - Last Documented: Negative Pulmonary History Comment: ASTHMA - Neurologic History Hx Cerebrovascular Accident: No Hx Seizures: No Hx Dementia: No Neurologic History Comment: POLIO CHILD - Endocrine History Hx Diabetes: No - Renal History Hx Renal Disorders: No - Liver History Hx Hepatic Disorders: No - Neurological & Psychiatric Hx Hx Neurological and Psychiatric Disorders: No - Cancer History Hx Cancer: No - Congenital Disorder History Hx Congenital Disorders: No - GI History Hx Gastrointestinal Disorders: Yes Gastrointestinal History Comment: N/V. CRAMPING AND ABD PAIN. CONSTIPATION - Other Health History Other Health History: NONE - Chronic Pain History Chronic Pain: No (ABD PAIN INTERMITTENTLY) - Surgical History Prior Surgeries: SURGERY AN ANE Review of Systems - Exercise capacity METS (RN): 4 METS ANE Patient History - Allergies Allergies/Adverse Reactions: atorvastatin calcium [From Lipitor] Allergy (Severe, Verified 05/26/17 15:22) myalgia gluten Allergy (Severe, Verified 05/26/17 15:22) Milk Containing Products [dairy] Allergy (Severe, Verified 05/26/17 15:22) [place] And Derivatives Allergy (Verified 05/26/17 15:22) - Home Medications Home Medications: Herbals/Supplements -Info Only 1 each PO DAILY 04/20/13 [Last Taken 05/26/17] Aspirin EC [Aspirin EC 81 mg (*)] 81 mg PO DAILY 05/08/16 [Last Taken 05/26/17] Calcium Carbonate [Oyster Shell Calcium 500 mg (*)] 500 mg PO BID@07,12 [Last Taken 05/25/17] Ascorbic Acid [Vitamin C 500 mg (*)] 1,000 mg PO DAILY 05/26/17 [Last Taken ] Cholecalciferol Vit D3 [Vitamin D3 (*)] 10,000 units PO MWF 05/26/17 [Last Taken 05/24/17] Fluticasone/Salmeter 250/50Mcg [Advair 250/50 (*)] 1 puffs IH BID PRN 05/26/17 [ Last Taken Unknown] Nebivolol HCl [Bystolic 5 mg (*)] 2.5 mg PO DAILY 05/26/17 [Last Taken 05/24/17] Rosuvastatin Calcium [Crestor 20mg (*)] 5 mg PO DAILY 05/26/17 [Last Taken 05/26] - NPO status NPO Status: no food or drink >8 hours NPO Since - Liquids (Date): 05/29/17 NPO Since - Liquids (Time): 00:00 NPO Since - Solids (Date): 05/29/17 NPO Since - Solids (Time): 00:00 - Anes Hx Anes Hx: slow to awaken from anesthesia - Smoking Hx Smoking Status: Never smoked - Family Anes Hx Family Hx Anesthesia Complications: MOTHER HAS N/V ANE Labs/Vital Signs - Labs Result Diagrams: 05/27/17 12:57 05/26/17 12:15 - Vital Signs Blood Pressure: 135/69 Heart Rate: 63 Respiratory Rate: 16 O2 Sat (%): 95 Height: 5 ft 8 in Weight: 78.5 kg ANE Physical Exam - Airway Neck exam: FROM Mallampati Score: Class 3 Mouth exam: normal dental/mouth exam - Cardiovascular Cardiovascular: regular rate and rhythym - ASA Status ASA Status: III ANE Anesthesia Plan Anesthesia Plan: general endotracheal anesthesia Lines/Monitors: arterial line, central line
[2017-05-29] MEDS ORDERED: VERAPAMIL 5 MG/2 ML VIAL ONE (07:06)
[2017-05-29] MEDS ORDERED: MINERAL OIL 10 ML VIAL ONE (07:06)
[2017-05-29] MEDS ORDERED: PAPAVERINE HCL 60 MG/2 ML SDV ONE (07:06)
[2017-05-29] MEDS ORDERED: REMIFENTANIL HCL 1 MG VIAL ONE (07:10)
[2017-05-29] MEDS ORDERED: fentaNYL 100 MCG/2 ML INJ ONE (07:10)
[2017-05-29] MEDS ORDERED: PROPOFOL/EMULSION 500 MG/50 ML BOTTLE IV ONE (07:11)
[2017-05-29] MEDS ORDERED: ROCURONIUM 100 MG/10 ML VIAL ONE (07:13)
[2017-05-29] MEDS ORDERED: DEXAMETHASONE 4 MG/ML VIAL ONE (07:17)
[2017-05-29] MEDS ORDERED: DEXMEDETOMIDINE HCL 400 MCG in NS 100 ML IV ONE (07:30)
[2017-05-29] MEDS ORDERED: CHOLECALCIFEROL VIT D3 1,000 UNITS TAB PO SCH (08:00)
[2017-05-29] MEDS ORDERED: ISOFLURANE 100 ML BOTTLE IH ONE (08:37)
[2017-05-29] MEDS ORDERED: MAGNESIUM SULF 2 GM/WATER 50 ML BAG IV ONE (09:54)
[2017-05-29] MEDS ORDERED: THROMBIN(HUM PLAS)/FIBRINOG/CA 5 ML VIAL TP ONE (10:14)
[2017-05-29] MEDS: NEBIVOLOL HCL 5 MG TAB PO SCH (10:18)
[2017-05-29] MEDS: ASCORBIC ACID 500 MG TAB PO SCH (10:18)
[2017-05-29] MEDS: ROSUVASTATIN CALCIUM 10 MG TAB PO SCH (10:18)
[2017-05-29] MEDS: CHOLECALCIFEROL VIT D3 2,000 UNITS TAB/CAP PO SCH (10:18)
[2017-05-29] MEDS: ASPIRIN EC 81 MG TAB PO SCH (10:18)
[2017-05-29] MEDS: CALCIUM CARBONATE 500 MG TAB PO SCH (10:18)
[2017-05-29] MEDS: MUPIROCIN 2% 22 GM OINT NS SCH ×2 (10:20→21:42)
[2017-05-29] MEDS ORDERED: ONDANSETRON 4 MG/2 ML VIAL ONE (10:32)
[2017-05-29] MEDS ORDERED: SUGAMMADEX SODIUM 200 MG/2 ML VIAL IVP ONE (10:32)
[2017-05-29] MEDS ORDERED: SODIUM CL NASAL 45 ML BTL EACHNARE PRN (11:11)
[2017-05-29] MEDS ORDERED: POLYETHYLENE GLYCOL 3350 17 GM PKT PO PRN (11:11)
[2017-05-29] MEDS ORDERED: LACTULOSE 20 GM/30 ML UDCUP PO PRN (11:11)
[2017-05-29] MEDS ORDERED: MAGNESIUM SULF 2 GM/WATER 50 ML IV ONE (11:11)
[2017-05-29] MEDS ORDERED: PANTOPRAZOLE SODIUM 40 MG in NS 100 ML IV ONE (11:11)
[2017-05-29] MEDS ORDERED: D50W 25 GM/50 ML SYR IVP PRN (11:11)
[2017-05-29] MEDS ORDERED: CEPACOL LOZENGE PO PRN (11:11)
[2017-05-29] MEDS ORDERED: MAGNESIUM HYDROXIDE 30 ML UDCUP PO PRN (11:11)
[2017-05-29] MEDS ORDERED: MEPERIDINE 25 MG/ML SYR IVP PRN (11:11)
[2017-05-29] MEDS ORDERED: NS 1,000 ML IV SCH (11:15)
--- NOTE | 2017-05-29 11:15 | POSTOPPROG ---
Post Op Note Date of Operation: 05/29/17 Surgeon: Xander Mccloud Stone Trimmer: Asad Anesthesiologist: Renata Anesthesia: GET(General Endotracheal) Pre-op Diagnosis: ASHD Procedure: CAB 2 Grewal-Lad, Svg-Dg, repair ventral hernia w mesh, Atriclip APRIL Findings: 10x10 cm ventral hernia Inf/Abcess present in the surg proc area at time of surgery?: No EBL: 50-100 (3 drains)
[2017-05-29] MEDS ORDERED: ALBUMIN 5% 500 ML BOTTLE IV ONE (11:25)
[2017-05-29] MEDS ORDERED: NOREPINEPHRINE/NS 4 MG/500 ML BAG IV ONE (11:25)
[2017-05-29] MEDS ORDERED: INSULIN REGULAR HUMAN 100 UNIT in NS 100 ML IV SCH (11:30)
[2017-05-29] MEDS: ALBUMIN 5% 250 ML IV PRN ×4 (11:34→23:33)
--- NOTE | 2017-05-29 11:53 | CPEKG ---
Heart Rate: 62 RR Interval: 968 P-R Interval: 196 QRSD Interval: 112 QT Interval: 464 QTC Interval: 472 P [place]: 70 QRS [place]: 2 T Wave [place]: 71 EKG Severity - ABNORMAL ECG - EKG Impression: SINUS RHYTHM EKG Impression: INCOMPLETE LEFT BUNDLE BRANCH BLOCK EKG Impression: BORDERLINE R WAVE PROGRESSION, ANTERIOR LEADS Electronically Signed By: Pierre Ralph 29-May-2017 15:44:04
--- NOTE | 2017-05-29 11:58 | POSTANESTH ---
Post Anesthetic Evaluation Cardiovascular Status: Normal, Stable Respiratory Status: Other, See Comment Level of Consciousness/Mental Status: Mildly Sleepy, Arousable Pain Control: Adequate, Prn Tx Ordered Nausea/Vomiting Control: Adequate, Prn Tx Ordered Complications Possibly Related to Anesthesia: None Noted Notes: on vent , sedated
[2017-05-29] MEDS ORDERED: SODIUM BICARBONATE 50 MEQ/50 ML SYR ONE (12:07)
--- NOTE | 2017-05-29 12:10 | GOP ---
[f rep st] OPERATIVE REPORT DATE OF OPERATION: 05/29/2017 SURGEON: Xander Mccloud DO ENVIRONMENTAL CONSTRUCTION ENGINEER: Ann Marie marion, PAC. ANESTHESIA: IV. ANESTHESIOLOGIST: Paco Montez MD. PREOPERATIVE DIAGNOSIS: Unstable angina pectoris, status post previous stenting of the left anterio r descending and diagonal. POSTOPERATIVE DIAGNOSIS: Unstable angina pectoris, status post previous stenting of the left anteri or descending and diagonal. operation. PROCEDURE PERFORMED: 1. Coronary artery bypass grafting x2 with left internal mammary artery to the left anterior descen ding and saphenous vein graft to the diagonal. 2. Repair of ventral hernia with mesh. 3. AtriClip to the left atrial appendage. FINDINGS: The patient presented with subtotal occlusion of her LAD with in-stent stenosis from rece nt stenting of LAD, diagonal. DESCRIPTION OF PROCEDURE: She was consented for surgery, brought to the operating room, intubated. Monitoring lines were placed. She was prepped and draped in sterile classical manner. Sternotomy was performed. At the lower pole of the sternal incision, there was noted to be a large ventral her erick, measuring 15 x 10 cm, with complete separation of the fascia. It was retracted, and I felt it would probably not be able to be closed primarily. I included it in the sternotomy incision. We th en took down the mammary, and the vein was taken open from the left leg. She was heparinized, cannu lated. Bypass was begun. A cardioplegic arrest was obtained with antegrade cardioplegia. We then placed a 35 mm AtriClip across the left atrial appendage base. We then proceeded with exposing the diagonal, which was a 1.82 mm vessel. The vein was excellent quality. It was grafted end-to-side t o the ascending aorta after the distal anastomosis was completed. We then spent some time identifyi ng the LAD, which was deeply intramuscular after takeoff of the diagonal. We dissected down approxi mately 1 cm into the fat and muscle along the septum, staying out of the right ventricle, and identi fied a 2 mm very thin-walled LAD in the mid LAD. The mammary was an appropriate match to it and was grafted without difficulty. It was tacked to the epicardium. The trough was left open to avoid an y impingement on the graft. We then released the cross-clamp with suction on the ascending aortic v ent. Spontaneous cardiac activity was noted to resume. The patient was easily weaned from bypass. The heparin was reversed with protamine. The cannula was removed and oversewn. We then used a 15 cm patch of woven synthetic material in order to close the defect in the ventricular wall without an y residual defect at all. The sternum was closed in standard fashion, with 2 ventricular pacing wir es, 2 pleural and 1 mediastinal drains. The chest was closed in standard fashion. The patient was returned to ICU in stable condition. /[id number]/MODL
[2017-05-29] MEDS ORDERED: SODIUM BICARBONATE 50 MEQ/50 ML SYR IV ONE ×2 (12:15→14:15)
[2017-05-29 13:11] LABS: CALCULATED OXYGEN SATURATION 94 % (92-95); O2 CONCENTRATIION 60 % (0-100)
[2017-05-29] MEDS: ceFAZolin 2 GM/DEXTROSE 100 ML IV SCH ×2 (13:32→21:52)
[2017-05-29 14:03] LABS: CALCULATED OXYGEN SATURATION 95 % (92-95); O2 CONCENTRATIION 60 % (0-100)
[2017-05-29] MEDS: POTASSIUM Cl (KCl) 50 ML IV PRN ×3 (14:03→22:39)
[2017-05-29] MEDS: ONDANSETRON 4 MG/2 ML VIAL IVP PRN (16:15)
[2017-05-29] MEDS ORDERED: LORazepam 2 MG/ML INJ ONE (16:30)
[2017-05-29] MEDS ORDERED: LORazepam 2 MG/ML INJ IV ONE (16:45)
[2017-05-29] MEDS: DEXMEDETOMIDINE HCL 400 MCG in NS 100 ML IV SCH (18:44)
[2017-05-29] MEDS: METOCLOPRAMIDE 10 MG/2 ML VIAL IVP PRN (19:17)
[2017-05-29] MEDS: fentaNYL 100 MCG/2 ML INJ IVP PRN ×3 (19:22→23:51)
--- NOTE | 2017-05-29 19:57 | GCON ---
[f rep st] CONSULTATION PULMONARY CRITICAL CARE CONSULTATION DATE OF CONSULTATION: 05/29/2017 REASON FOR CONSULTATION: Postoperative respiratory insufficiency following open heart surgery, ventilatory management. HISTORY: The patient is a 71-year-old with severe coronary artery disease. She is status post stenting in the past. She was admitted following a treadmill test where she developed angina. She was seen by Cardiovascular Surgery and bypass grafting was recommended secondary to subtotal occlusion of the LAD. She has a history of SVT. She is status post ablation. There is no history of underlying lung disease. However, in the past she has had difficulty with anesthetics resulting in prolonged ventilatory requirements postoperatively. She was taken to the operating room this morning. She had coronary artery bypass grafting x2 to the LAD and diagonal. A ventral hernia was also repaired and the atrial appendage clipped. She was returned to the intensive care unit on the ventilator. She is waking up at this point in time; however, her respiratory rate is in the 40s to 50s with very small tidal volumes, approximately 200 mL. She is complaining of some anterior chest and abdominal discomfort. Per Anesthesia, she was a difficult intubation. She has had one blood gas postoperatively on CPAP; pH was 7.23 with a pCO2 of 52. PAST MEDICAL HISTORY: Remarkable for her coronary issues as outlined above, systemic hypertension, hyperlipidemia, psoriasis, and a DVT in 1994. MEDICATIONS ON ADMISSION: Included Crestor, Bystolic, Plavix, aspirin, and p.r.n. Advair. SOCIAL HISTORY: The patient is , with a supportive and daughter who are here. She has other children as well. She is a never smoker. Significant alcohol is negative. FAMILY HISTORY: Coronary artery disease. DRUG ALLERGIES: Atorvastatin, gluten, dairy, citrus. PHYSICAL EXAMINATION: GENERAL: Physical examination reveals a woman who is on the ventilator and breathing spontaneously, but quite rapidly and shallowly. She indicates that she has some pain in her chest, possibly lower abdomen. VITAL SIGNS: Respiratory rate on CPAP is 45 currently. Blood pressure is 105/ 60, heart rate 64 with sinus rhythm on the monitor. On 40% FiO2 is 98%. She is afebrile. HEENT: Remarkable for the oral endotracheal tube being in place. There is no NG or OG tube. Pupils appear equal. There is no obvious JVD. CHEST: Clear anteriorly. Breath sounds are diminished bilaterally, especially at the bases. HEART: Regular. Heart tones are distant. There is a soft systolic murmur, no obvious gallop. Three chest/mediastinal tubes are in place with bloody drainage. ABDOMEN: The abdomen is somewhat distended and firm. Bowel sounds are diminished. There is abdominal tenderness. A Fernandes catheter is in place, with good urine output. Her weight is up 4 kg compared to pre surgery. EXTREMITIES: There is trace lower extremity edema. The left lower extremity is post saphenous vein harvest. NEUROLOGIC: Examination is normal/ intact. She moves all extremities. She is communicating. DATABASE: Chest x-ray postoperatively shows small lung volumes with some atelectasis at the left base. Lines and tubes are in good position. Postop blood gas: pH 7.22, pCO2 52, and pO2 85 on 60% FiO2. Hematocrit is 35. Sodium is 146, potassium 2.9, BUN 10, with a creatinine of 0.6. Glucose is 174. ASSESSMENT: 1. Status post coronary artery bypass grafting x2. She is hemodynamically stable, doing well. 2. Acute postoperative respiratory insufficiency secondary to left lower lobe atelectasis, pain, hypo ventilation, and hiatal hernia repair. She has a respiratory acidosis and is not ready to be extubated at this time. Secondary to airway anatomy, intubation was difficult. It would be best to leave her on the ventilator overnight, not try to extubate at this point and reassess in a.m. Pain control and sedation will be needed. I will put her on Precedex if needed. She does have a history of ventilatory issues/insufficiency postoperatively in the past. 3. Respiratory acidosis. Please see the comments above. 4. Acute blood loss anemia. Hematocrit currently is 35, down from 44 preoperatively. She is getting Cell Saver. 5. Metabolic: No issues identified. Chemistries will be followed. 6. Deep venous thrombosis prophylaxis: On subcu heparin starting tomorrow. 7. Hyperglycemia: On insulin drip per protocols. 8. History of mild intermittent asthma. On DuoNebs p.r.n. 9. Gastrointestinal prophylaxis: On pantoprazole. PLAN AND RECOMMENDATIONS: Continued care and ventilatory support will be maintained. I am recommending that she be left on the ventilator overnight, with appropriate pain control and sedation. I will order Precedex for her. Reassessment for extubation with CPAP weaning will be reinitiated in the a.m. Dopamine, fluids and cardiac medications per [facility]. CBC and chemistries will be followed. X-ray and blood gas will be followed. All of the above was discussed with the patient, her family, Nursing and Respiratory. /[id number]/MODL JHON
[2017-05-29] MEDS ORDERED: FAMOTIDINE 20 MG/NACL 50 ML IV SCH (21:00)
[2017-05-29 21:47] LABS: HEMATOCRIT 30.6 % (38.0-47.0); HEMOGLOBIN 10.2 g/dL (12.6-16.3); MEAN CELL HEMOGLOBIN 30.8 pg (27.9-34.1); MEAN CELL HEMOGLOBIN CONCENTR. 33.3 g/dL (32.4-36.7); MEAN CELL VOLUME 92.4 fL (81.5-99.8); RED BLOOD CELL COUNT 3.31 10^6/uL (4.18-5.33)
[2017-05-29] MEDS: CHLORHEXIDINE GLUCONATE 15 ML UDL PO SCH (22:33)
[2017-05-30] MEDS: DEXMEDETOMIDINE HCL 400 MCG in NS 100 ML IV SCH (01:16)
[2017-05-30] MEDS: fentaNYL 100 MCG/2 ML INJ IVP PRN ×2 (01:40→11:28)
[2017-05-30] MEDS: ALBUMIN 5% 250 ML IV PRN ×2 (02:05→03:07)
[2017-05-30] MEDS: METOCLOPRAMIDE 10 MG/2 ML VIAL IVP PRN (05:20)
[2017-05-30] MEDS: ceFAZolin 2 GM/DEXTROSE 100 ML IV SCH ×3 (05:21→21:35)
[2017-05-30 05:50] LABS: % IMMATURE GRANULYOCYTES 0.5 % (0.0-1.1); ABSOLUTE IMMATURE GRANULOCYTES 0.09 10^3/uL (0.00-0.10); ADD DIFF? NO; ADD MORPH? NO; ADD SCAN? NO; ATYPICAL LYMPHOCYTE FLAG 0 (0-99); FRAGMENT RBC FLAG 0 (0-99); HEMATOCRIT 25.9 % (38.0-47.0); HEMOGLOBIN 8.6 g/dL (12.6-16.3); LEFT SHIFT FLG 10 (0-99); LIPEMIA HEMOLYSIS FLAG 80 (0-99); MEAN CELL HEMOGLOBIN 31.3 pg (27.9-34.1); MEAN CELL HEMOGLOBIN CONCENTR. 33.2 g/dL (32.4-36.7); MEAN CELL VOLUME 94.2 fL (81.5-99.8); MEAN PLATELET VOLUME 10.4 fL (8.7-11.7); PLATELET CLUMPS FLAG 0 (0-99); PLATELET COUNT 138 10^3/uL (150-400); RED BLOOD CELL COUNT 2.75 10^6/uL (4.18-5.33); RED CELL DISTRIBUTION WIDTH 14.2 % (11.5-15.2)
[2017-05-30 06:15] LABS: ANION GAP 10 mEq/L (8-16); CALCIUM 8.3 mg/dL (8.5-10.4); CARBON DIOXIDE 22 mEq/l (22-31); CHLORIDE 112 mEq/L (97-110); CREATININE 0.6 mg/dL (0.6-1.0); GLOMERULAR FILTRATION RATE > 60; GLUCOSE 130 mg/dL (70-100); POTASSIUM 4.4 mEq/L (3.5-5.2); SODIUM 144 mEq/L (134-144)
[2017-05-30] MEDS: HEPARIN 5,000 UNIT/0.5 ML SYR SC SCH ×3 (06:31→21:33)
[2017-05-30] MEDS ORDERED: CANN-EASE 2 GM TUBE TP ONE (06:34)
--- NOTE | 2017-05-30 07:18 | SOAPPROG ---
SOAP Progress Note Assessment/Plan: Assessment: POD#1 CABG x 2 (CLOUD-LAD, SV-D1), open vein harvest left thigh, prophylactic AtriClip ligation left atrial appendage, mesh repair of incidental ventral hernia Sx CAD/ISR LAD - s/p CABG2. Secondary prevention with ASA, BB, and statin when appropriate. Plavix discontinued as stents occluded. ISCM - Preop LVEF 45%. Preserved systolic fx post revasc. Early postop hemodynamics optimized with IVF and low dose dopa. No tachyarrhythmias or backup pacing. Adequately autodiuresing 10kg fluid overload with stable renal fx. Staggered intro of heart failure regimen as appropriate. Hx Aflutter/AVNRT ablation - Early postop rhythm sinus. AF prophylaxis with BB as allowed by BP. Acute postoperative respiratory insufficiency - Kept intubated overnight d/t resp acidosis secondary to pain/atelectasis. Successfully extubated this am. Supportive care prn. Acute expected blood loss anemia - Stable. No transfusions required. No evidence active bleeding. VTE prophylaxis with SQ hep. Ventral hernia - Incidental discovery when preparing for chest tube placement. Large defect repaired with mesh. Plan: Toradol 15mg IV x 1. Routine POD#1 orders re drains, wires. Strict NPO until orals cleared by RACK MAKER. Aggressive dopa wean. Remove tano and galeano after dopa off. Probable observe 1 more day in ICU. 05/30/17 07:50 Subjective: Awake. Alert. ETT pulled. Hurting and reluctant to move. Objective: Vital Signs Temp Pulse Resp BP Pulse Ox 37.5 C 65 14 121/57 H 98 05/30/17 06:00 05/30/17 06:00 05/30/17 06:00 05/30/17 06:00 05/30/17 06:00 Laboratory Results 05/30/17 05:43 05/29/17 05/30/17 05/31/17 05:59 05:59 05:59 Intake Total 830 3078.7 Output Total 3138 Balance 830 -59.3 Holding SR. MAPs > 65 on dopa @ 2 mcg. Sats > 95%. Balanced I/Os. Modest CTOP. CXR-> No PTX, no pulm vasc congestion, LLL atelectasis Labs as expected. Physical Exam - Physical Exam General Appearance: alert, mild distress Respiratory: lungs clear (grossly), other (blakes x 3 y-d to pleurovac, serosang drainage, no tidal, no air leak) Cardiac/Chest: regular rate, rhythm, other (Sternum grossly stable. Sternotomy and LLE venotomy CDI. Vwires intact.) Abdomen: normal bowel sounds, non-tender, soft Skin: warm/dry Extremities: swelling (1+ gen) ICD10 Worksheet Patient Problems: Problems Problem Status Onset Chest pain Acute Occluded coronary artery stent Acute S/P CABG x 2 Acute ~05/29/17 S/P ventral herniorrhaphy Acute ~05/29/17 Ventral hernia Chronic AVNRT (AV moe re-entry tachycardia) Acute Atrial flutter Acute Decrease in appetite Acute Dyspnea Acute Generalized weakness Acute Nausea Acute Syncope Acute
[2017-05-30 07:21] LABS: POTASSIUM 4.6 mEq/L (3.5-5.2)
[2017-05-30] MEDS: MUPIROCIN 2% 22 GM OINT NS SCH (08:10)
[2017-05-30] MEDS: CHLORHEXIDINE GLUCONATE 15 ML UDL PO SCH (08:10)
[2017-05-30] MEDS ORDERED: KETOROLAC 15 MG/1 ML SDV IVP ONE (08:10)
[2017-05-30 11:36] LABS: POTASSIUM 4.4 mEq/L (3.5-5.2)
[2017-05-30] MEDS: HYDROCODONE/APAP 5/325 TAB PO PRN ×3 (11:59→19:51)
[2017-05-30] MEDS: ASPIRIN EC 81 MG TAB PO SCH (12:00)
[2017-05-30] MEDS: PANTOPRAZOLE SODIUM 40 MG TAB PO SCH (12:00)
--- NOTE | 2017-05-30 14:21 | PDINTPN ---
Buffing Wheel Former Machine Progress Note Assessment/Plan: Assessment: Status post open heart surgery, CABG. Doing well. Hemodynamics stable. Off dopamine. Postoperative respiratory insufficiency, secondary to atelectasis and pain. Resolved. Doing well post extubation Anemia: Secondary to acute blood loss. Chest tube drainage slowing. Will follow. May need blood. History of hypertension, hyperlipidemia, SVT and ablation, CAD DVT: on subcu heparin and aspirin. GI: On pantoprazole Plan: Continue care in the intensive care unit today. Continue present medications Increase activity as tolerated. Follow clinical status, hemodynamics, laboratory, chest x-ray. 35 minutes of clinic time spent directly with the patient. Discussed with the patient's family, respiratory, nursing, and the ICU multi disciplinary team. Subjective: Extubated this a.m.. Has done well since. Has been up, out of bed, ambulated a short distance. Complains of anterior chest pain, Some dyspnea with exertional activities Objective: Vital Signs Temp Pulse Resp BP Pulse Ox 37.4 C 81 20 93/64 L 96 05/30/17 11:44 05/30/17 11:44 05/30/17 11:44 05/30/17 11:44 05/30/17 11:44 Laboratory Results 05/30/17 05:43 05/30/17 11:18 05/29/17 05/30/17 05/31/17 05:59 05:59 05:59 Intake Total 830 3078.7 38.2 Output Total 3138 250 Balance 830 -59.3 -211.8 Laboratory Tests 05/30/17 05:43 Sodium 144 Potassium 4.4 Chloride 112 H Carbon Dioxide 22 Anion Gap 10 BUN 12 Creatinine 0.6 Estimated GFR > 60 Glucose 130 H Calcium 8.3 L CXR: Stable. Some left lower lobe atelectasis. Lines and tubes in good position. Physical Exam - Physical Exam General Appearance: alert, no apparent distress EENT: other ( Nasal cannula at 4 L.) Neck: normal inspection (some JVD - CVP 13) Respiratory: lungs clear ( anteriorly), decreased breath sounds ( at bases, some congestion and rales at the bases.), other ( Chest tubes remain in place, bloody drainage.) Cardiac/Chest: regular rate, rhythm Abdomen: non-tender, soft, No normal bowel sounds ( Decreased, present) Pelvic Exam: other ( Fernandes catheter in place, good urine output) Skin: warm/dry, pallor Extremities: pedal edema ( trace) Neuro/Psych: no motor/sensory deficits ( moves all extremities equally), No cognition abnormalities ICD10 Worksheet Patient Problems: Problems Problem Status Onset S/P ventral herniorrhaphy Acute ~05/29/17 Ventral hernia Chronic S/P CABG x 2 Acute ~05/29/17 Occluded coronary artery stent Acute Generalized weakness Acute Decrease in appetite Acute Nausea Acute Syncope Acute Atrial flutter Acute AVNRT (AV moe re-entry tachycardia) Acute Dyspnea Acute Chest pain Acute
[2017-05-30 18:02] LABS: POTASSIUM 4.6 mEq/L (3.5-5.2)
[2017-05-30] MEDS: SENNOSIDES/DOCUSATE SODIUM TAB PO SCH (19:26)
[2017-05-31] MEDS: HYDROCODONE/APAP 5/325 TAB PO PRN ×2 (00:20→04:21)
[2017-05-31 02:19] LABS: POTASSIUM 4.5 mEq/L (3.5-5.2)
[2017-05-31 04:33] LABS: % IMMATURE GRANULYOCYTES 0.7 % (0.0-1.1); ABSOLUTE IMMATURE GRANULOCYTES 0.19 10^3/uL (0.00-0.10); ADD DIFF? NO; ADD MORPH? NO; ADD SCAN? NO; ATYPICAL LYMPHOCYTE FLAG 0 (0-99); FRAGMENT RBC FLAG 0 (0-99); HEMOGLOBIN 8.6 g/dL (12.6-16.3); LEFT SHIFT FLG 0 (0-99); LIPEMIA HEMOLYSIS FLAG 80 (0-99); MEAN CELL HEMOGLOBIN 31.2 pg (27.9-34.1); MEAN CELL HEMOGLOBIN CONCENTR. 31.9 g/dL (32.4-36.7); MEAN CELL VOLUME 97.8 fL (81.5-99.8); MEAN PLATELET VOLUME 10.3 fL (8.7-11.7); PLATELET CLUMPS FLAG 30 (0-99); PLATELET COUNT 163 10^3/uL (150-400); RED BLOOD CELL COUNT 2.76 10^6/uL (4.18-5.33); RED CELL DISTRIBUTION WIDTH 14.7 % (11.5-15.2)
[2017-05-31 05:00] LABS: ANION GAP 11 mEq/L (8-16); CALCIUM 8.7 mg/dL (8.5-10.4); CARBON DIOXIDE 23 mEq/l (22-31); CHLORIDE 109 mEq/L (97-110); CREATININE 0.9 mg/dL (0.6-1.0); GLOMERULAR FILTRATION RATE > 60; GLUCOSE 123 mg/dL (70-100); POTASSIUM 4.7 mEq/L (3.5-5.2); SODIUM 143 mEq/L (134-144)
[2017-05-31] MEDS: HEPARIN 5,000 UNIT/0.5 ML SYR SC SCH ×3 (05:54→22:07)
--- NOTE | 2017-05-31 08:45 | SOAPPROG ---
SOAP Progress Note Assessment/Plan: Assessment: POD#2 CABG x 2 (CLOUD-LAD, SV-D1), open vein harvest left thigh, prophylactic AtriClip ligation left atrial appendage, mesh repair of incidental ventral hernia Sx CAD/ISR LAD - s/p CABG2. Secondary prevention with ASA, BB, and statin when appropriate. Plavix discontinued as stents occluded. ISCM - Preop LVEF 45%. Preserved systolic fx post revasc. Early postop hemodynamics optimized with IVF and low dose dopa. No tachyarrhythmias or backup pacing. Adequately autodiuresing 10kg fluid overload with stable renal fx. Staggered intro of heart failure regimen as appropriate. Hx Aflutter/AVNRT ablation - Early postop rhythm sinus. AF prophylaxis with BB as allowed by BP. Acute postoperative respiratory insufficiency - Kept intubated overnight d/t resp acidosis secondary to pain/atelectasis. Successfully extubated yest am. Steady reduction in suppl O2 needs. Unlikely to need O2 by time of discharge. Acute expected blood loss anemia - Stable. No transfusions required. No evidence active bleeding. VTE prophylaxis with SQ hep. Ventral hernia - Incidental discovery when preparing for chest tube placement. Large defect repaired with mesh. Plan: Tx to PCU. Inc activity. Consider starting BB tonight. 05/31/17 08:44 Subjective: Much better than yest. Satisfactory analgesia on [place]. Tolerated light breakfast and short walk to threshold of doorway. Objective: Vital Signs Temp Pulse Resp BP Pulse Ox 37.2 C 84 16 95/43 L 96 05/31/17 08:00 05/31/17 08:00 05/31/17 08:00 05/31/17 08:00 05/31/17 08:00 Laboratory Results 05/31/17 04:15 05/31/17 04:15 05/30/17 05/31/17 06/01/17 05:59 05:59 05:59 Intake Total 3078.7 1173.8 Output Total 3138 1320 Balance -59.3 -146.2 Holding SR with rates 70s-80s. Holding SBP > 90 off dopa. Stable sats on 2 LPM O2. Balanced I/Os. +5 kg by wt. CTOP nearing removal criteria. CXR-> No PTX, no pulm vasc congestion, small left pleural effusion despite gutter tube in good position Labs ok. Probable leukemoid rxn. Afeb. Physical Exam - Physical Exam General Appearance: alert, no apparent distress Respiratory: crackles (left base o/w clear), other (blakes x 3 to bulb suction, serosang drainage, left jennifer stripped of clot.) Cardiac/Chest: regular rate, rhythm, other (Sternum grossly stable. Sternotomy and LLE venotomy CDI. Vwires intact.) Abdomen: normal bowel sounds, non-tender, soft Skin: warm/dry Extremities: other (no visible edema) ICD10 Worksheet Patient Problems: Problems Problem Status Onset Chest pain Acute Occluded coronary artery stent Acute S/P CABG x 2 Acute ~05/29/17 S/P ventral herniorrhaphy Acute ~05/29/17 Ventral hernia Chronic AVNRT (AV moe re-entry tachycardia) Acute Atrial flutter Acute Decrease in appetite Acute Dyspnea Acute Generalized weakness Acute Nausea Acute Syncope Acute
[2017-05-31] MEDS: CHOLECALCIFEROL VIT D3 2,000 UNITS TAB/CAP PO SCH (10:25)
[2017-05-31] MEDS: SENNOSIDES/DOCUSATE SODIUM TAB PO SCH ×2 (10:26→19:51)
[2017-05-31] MEDS: ASPIRIN EC 81 MG TAB PO SCH (10:26)
[2017-05-31] MEDS: PANTOPRAZOLE SODIUM 40 MG TAB PO SCH (10:26)
[2017-05-31] MEDS: IPRATROPIUM/ALBUTEROL 3 ML DEYVIAL IH PRN (15:33)
--- NOTE | 2017-05-31 18:02 | PDINTPN ---
Coding Validator Progress Note Assessment/Plan: Assessment: Status post open heart surgery, CABG. Doing well. Hemodynamics stable. Off dopamine. Chest tubes to bulb suction. Working with physical therapy Postoperative respiratory insufficiency, secondary to atelectasis and pain. Resolved. Doing well post extubation. On 2 L. Anemia: Secondary to acute blood loss. Chest tube drainage slowed. HCT stable. Will follow. History of hypertension, hyperlipidemia, SVT and ablation, CAD DVT: on subcu heparin and aspirin. GI: On pantoprazole. Leukocytosis: WBC elevated at 26. No obvious signs or symptoms of infection. Will follow, repeat CBC in a.m.. Plan: Continue care in the intensive care unit. Continue present medications Increase activity as tolerated. Follow clinical status, hemodynamics. Follow laboratory, chest x-ray intermittently. 30 minutes of clinic time spent directly with the patient. Discussed with the patient's , respiratory, nursing, and the ICU multi disciplinary team. Subjective: Doing better today. Tired, weak. Chest pain is significantly better. Some epigastric discomfort. Objective: Vital Signs Temp Pulse Resp BP Pulse Ox 37.4 C 83 18 109/43 L 91 L 05/31/17 16:00 05/31/17 16:00 05/31/17 16:00 05/31/17 16:00 05/31/17 16:00 Laboratory Results 05/31/17 04:15 05/31/17 04:15 05/30/17 05/31/17 06/01/17 05:59 05:59 05:59 Intake Total 3078.7 1173.8 Output Total 3138 1320 150 Balance -59.3 -146.2 -150 CXR: No significant changes. Some hypoventilatory issues persists with bibasilar atelectasis, left greater than right. Physical Exam - Physical Exam General Appearance: alert, no apparent distress EENT: PERRL/EOMI, other (Nasal cannula at 2 L) Neck: normal inspection Respiratory: decreased breath sounds, rales (Few rales on left), pleural rub ( Present lower left anterior chest), No respiratory distress, No rhonchi, No wheezing Cardiac/Chest: regular rate, rhythm Abdomen: normal bowel sounds, non-tender, soft Pelvic Exam: other (Fernandes catheter) Skin: warm/dry, pallor Extremities: pedal edema (Trace) Neuro/Psych: no motor/sensory deficits, No cognition abnormalities ICD10 Worksheet Patient Problems: Problems Problem Status Onset Chest pain Acute Occluded coronary artery stent Acute S/P CABG x 2 Acute ~05/29/17 S/P ventral herniorrhaphy Acute ~05/29/17 Ventral hernia Chronic AVNRT (AV moe re-entry tachycardia) Acute Atrial flutter Acute Decrease in appetite Acute Dyspnea Acute Generalized weakness Acute Nausea Acute Syncope Acute
[2017-05-31] MEDS: ONDANSETRON DISINTEGRATING 4 MG TAB PO PRN (19:41)
[2017-05-31] MEDS: traMADol 50 MG TAB PO PRN (19:41)
[2017-06-01] MEDS: traMADol 50 MG TAB PO PRN (04:02)
[2017-06-01 04:14] LABS: % IMMATURE GRANULYOCYTES 0.6 % (0.0-1.1); ABSOLUTE IMMATURE GRANULOCYTES 0.12 10^3/uL (0.00-0.10); ADD DIFF? NO; ADD MORPH? NO; ADD SCAN? NO; ATYPICAL LYMPHOCYTE FLAG 0 (0-99); FRAGMENT RBC FLAG 0 (0-99); HEMATOCRIT 24.1 % (38.0-47.0); HEMOGLOBIN 7.9 g/dL (12.6-16.3); LEFT SHIFT FLG 0 (0-99); LIPEMIA HEMOLYSIS FLAG 80 (0-99); MEAN CELL HEMOGLOBIN 31.7 pg (27.9-34.1); MEAN CELL HEMOGLOBIN CONCENTR. 32.8 g/dL (32.4-36.7); MEAN CELL VOLUME 96.8 fL (81.5-99.8); MEAN PLATELET VOLUME 10.2 fL (8.7-11.7); PLATELET CLUMPS FLAG 0 (0-99); PLATELET COUNT 170 10^3/uL (150-400); RED BLOOD CELL COUNT 2.49 10^6/uL (4.18-5.33); RED CELL DISTRIBUTION WIDTH 14.6 % (11.5-15.2)
[2017-06-01] MEDS: HEPARIN 5,000 UNIT/0.5 ML SYR SC SCH ×3 (06:22→22:20)
--- NOTE | 2017-06-01 08:29 | SOAPPROG ---
SOAP Progress Note Assessment/Plan: Assessment: POD#3 CABG x 2 (CLOUD-LAD, SV-D1), open vein harvest left thigh, prophylactic AtriClip ligation left atrial appendage, mesh repair of incidental ventral hernia Sx CAD/ISR LAD - s/p CABG2. Secondary prevention with ASA, BB, and statin when appropriate. Plavix discontinued as stents occluded. ISCM - Preop LVEF 45%. Preserved systolic fx post revasc. Early postop hemodynamics optimized with IVF and low dose dopa. No tachyarrhythmias or backup pacing. Adequately autodiuresing 10kg fluid overload with stable renal fx. Staggered intro of heart failure regimen as appropriate. Hx Aflutter/AVNRT ablation - Early postop rhythm sinus. AF prophylaxis with BB as allowed by BP. Acute postoperative respiratory insufficiency - Kept intubated overnight d/t resp acidosis secondary to pain/atelectasis. Successfully extubated POD#1. Steady reduction in suppl O2 needs. Unlikely to need O2 by time of discharge. Acute expected blood loss anemia - Stable. No transfusions required. No evidence active bleeding. VTE prophylaxis with SQ hep. Ventral hernia - Incidental discovery when preparing for chest tube placement. Large defect repaired with mesh. Plan: Remove TCPW. Remove mediastinal and rt pleural jennifer. Resume Bystolic. Consider gentle diuresis later today. Cont inc activity as tolerated. 06/01/17 08:25 Subjective: Better than yest. Improving mobility and appetite. Satisfactory analgesia. Objective: Vital Signs Temp Pulse Resp BP Pulse Ox 36.7 C 90 24 H 116/68 95 06/01/17 04:00 06/01/17 04:00 06/01/17 04:00 06/01/17 04:00 06/01/17 04:00 Laboratory Results 06/01/17 04:10 05/31/17 04:15 05/31/17 06/01/17 06/02/17 05:59 05:59 05:59 Intake Total 1173.8 750 Output Total 1320 1530.5 Balance -146.2 -780.5 Holding SR with rates 70s-90s. SBP more robust. Excellent sats on 2 LPM O2. Balanced I/Os. +5 kg by wt. Mediastinal and rt pl drain at removal criteria. Labs ok. WBC decr. Afeb. Physical Exam - Physical Exam General Appearance: alert, no apparent distress Respiratory: crackles (bases), other (blakes x 3 to bulb suction, serosang drainage) Cardiac/Chest: regular rate, rhythm, other (Sternum grossly stable. Sternotomy and LLE venotomy CDI. Vwires intact.) Abdomen: non-tender, soft Skin: warm/dry Extremities: swelling (trace) ICD10 Worksheet Patient Problems: Problems Problem Status Onset Chest pain Acute Occluded coronary artery stent Acute S/P CABG x 2 Acute ~05/29/17 S/P ventral herniorrhaphy Acute ~05/29/17 Ventral hernia Chronic AVNRT (AV moe re-entry tachycardia) Acute Atrial flutter Acute Decrease in appetite Acute Dyspnea Acute Generalized weakness Acute Nausea Acute Syncope Acute
--- NOTE | 2017-06-01 09:00 | PDINTPN ---
Junior Manufacturing Engineer Progress Note Assessment/Plan: Assessment: Status post open heart surgery, CABG 05/29. Doing well. Hemodynamics stable. Chest tubes to bulb suction: 2 out today. Working with physical therapy Postoperative respiratory insufficiency, secondary to atelectasis and pain. Resolved. Extubated 05/30. Doing well, on 2 L. Anemia: Secondary to acute blood loss. Chest tube drainage slowed. HCT 24...follow, start oral iron. History of hypertension, hyperlipidemia, SVT and ablation, CAD DVT: On subcu heparin and aspirin. GI: On pantoprazole. Leukocytosis: WBC down today: 20. No obvious signs or symptoms of infection. Will follow. Plan: Can TF to PCU. Continue present medications Diuresis per CVS. Increase activity as tolerated. Follow clinical status, hemodynamics. Start oral iron. Cont IS. Follow CBC, laboratory, chest x-ray intermittently. 25 minutes of critical care time spent directly with the patient. Discussed with [facility]. I will sign off at this point. Subjective: Doing well, up walking in the halls. Feels much better. No significant chest or abdominal pain. Objective: Vital Signs Temp Pulse Resp BP Pulse Ox 36.7 C 90 24 H 116/68 95 06/01/17 04:00 06/01/17 04:00 06/01/17 04:00 06/01/17 04:00 06/01/17 04:00 Laboratory Results 06/01/17 04:10 05/31/17 04:15 05/31/17 06/01/17 06/02/17 05:59 05:59 05:59 Intake Total 1173.8 750 Output Total 1320 1530.5 Balance -146.2 -780.5 Physical Exam - Physical Exam General Appearance: alert EENT: PERRL/EOMI, other (Nasal cannula 2 L) Neck: normal inspection Respiratory: lungs clear (Anteriorly), decreased breath sounds (At bases), rales (Few at bases), No rhonchi, No wheezing, No pleural rub (Resolved) Cardiac/Chest: regular rate, rhythm, other (2 of/drains in place) Abdomen: normal bowel sounds, non-tender, soft Pelvic Exam: other (Urine output.) Skin: warm/dry, pallor Extremities: pedal edema (Trace +) Neuro/Psych: no motor/sensory deficits, No cognition abnormalities ICD10 Worksheet Patient Problems: Problems Problem Status Onset S/P ventral herniorrhaphy Acute ~05/29/17 Ventral hernia Chronic S/P CABG x 2 Acute ~05/29/17 Occluded coronary artery stent Acute Generalized weakness Acute Decrease in appetite Acute Nausea Acute Syncope Acute Atrial flutter Acute AVNRT (AV moe re-entry tachycardia) Acute Dyspnea Acute Chest pain Acute
[2017-06-01] MEDS: CALCIUM CARBONATE 500 MG TAB PO SCH ×2 (10:40→14:55)
[2017-06-01] MEDS: ASCORBIC ACID 500 MG TAB PO SCH (10:40)
[2017-06-01] MEDS: ASPIRIN EC 81 MG TAB PO SCH (10:40)
[2017-06-01] MEDS: NEBIVOLOL HCL 5 MG TAB PO SCH (10:40)
[2017-06-01] MEDS: FERROUS SULFATE 325 MG TAB PO SCH (10:40)
[2017-06-01] MEDS: CHOLECALCIFEROL VIT D3 2,000 UNITS TAB/CAP PO SCH (10:40)
[2017-06-01] MEDS: SENNOSIDES/DOCUSATE SODIUM TAB PO SCH ×2 (10:41→22:21)
[2017-06-01] MEDS: PANTOPRAZOLE SODIUM 40 MG TAB PO SCH (10:41)
[2017-06-01] MEDS: ROSUVASTATIN CALCIUM 10 MG TAB PO SCH (10:41)
[2017-06-01] MEDS ORDERED: AMIODARONE A.FIB-LOAD DOSE(ORDER 1/3) IV ONE (11:30)
[2017-06-01] MEDS ORDERED: AMIODARONE A.FIB-6HR INFSN (ORDER 2/3) IV ONE (11:30)
[2017-06-01] MEDS: FLUTICASONE/SALMETER 250/50MCG DISKUS IH SCH ×2 (12:29→21:31)
[2017-06-01] MEDS ORDERED: AMIODARONE HCL 100 ML IV ONE (16:09)
[2017-06-01] MEDS: BISACODYL 10 MG SUPP PR PRN (16:14)
[2017-06-01] MEDS ORDERED: BISACODYL 10 MG SUPP PR ONE (16:15)
[2017-06-01] MEDS: ONDANSETRON DISINTEGRATING 4 MG TAB PO PRN (16:47)
[2017-06-01] MEDS ORDERED: AMIODARONE A.FIB-18HR INFSN (ORDER 3/3) IV ONE (17:00)
[2017-06-01] MEDS: IPRATROPIUM/ALBUTEROL 3 ML DEYVIAL IH PRN (21:11)
[2017-06-01] MEDS: ONDANSETRON 4 MG/2 ML VIAL IVP PRN (21:48)
[2017-06-01] MEDS: METOPROLOL TARTRATE 25 MG TAB PO SCH (22:20)
[2017-06-02] MEDS: METOCLOPRAMIDE 10 MG/2 ML VIAL IVP PRN (01:08)
[2017-06-02] MEDS: traMADol 50 MG TAB PO PRN ×3 (03:22→17:34)
[2017-06-02] MEDS: HEPARIN 5,000 UNIT/0.5 ML SYR SC SCH ×2 (06:29→14:44)
[2017-06-02 06:42] LABS: HEMATOCRIT 28.3 % (38.0-47.0); HEMOGLOBIN 9.6 g/dL (12.6-16.3); MEAN CELL HEMOGLOBIN 31.9 pg (27.9-34.1); MEAN CELL HEMOGLOBIN CONCENTR. 33.9 g/dL (32.4-36.7); RED BLOOD CELL COUNT 3.01 10^6/uL (4.18-5.33); RED CELL DISTRIBUTION WIDTH 15.1 % (11.5-15.2)
[2017-06-02 07:01] LABS: ANION GAP 8 mEq/L (8-16); CALCIUM 8.8 mg/dL (8.5-10.4); CARBON DIOXIDE 24 mEq/l (22-31); CHLORIDE 103 mEq/L (97-110); CREATININE 0.7 mg/dL (0.6-1.0); GLOMERULAR FILTRATION RATE > 60; GLUCOSE 104 mg/dL (70-100); POTASSIUM 4.5 mEq/L (3.5-5.2); SODIUM 135 mEq/L (134-144)
--- NOTE | 2017-06-02 07:37 | SOAPPROG ---
SOAP Progress Note Assessment/Plan: POD#4 CABG x 2 (CLOUD-LAD, SV-D1), open vein harvest left thigh, prophylactic AtriClip ligation left atrial appendage, mesh repair of incidental ventral hernia Sx CAD/ISR LAD - s/p CABG2. Secondary prevention with ASA, BB, and statin when appropriate. Plavix discontinued as stents occluded. ISCM - Preop LVEF 45%. Preserved systolic fx post revasc. Early postop hemodynamics optimized with IVF and low dose dopa. No tachyarrhythmias or backup pacing. 9kg fluid overload with stable renal fx. Staggered intro of heart failure regimen as appropriate. Hx Aflutter/AVNRT ablation with post-operative GEORGIE - Conversion to SR with amiodarone gtt protocol. Transition to PO amiodarone to begin this evening. Continue BB. Thromboprophylaxis deferred to short duration of AF and ligation of APRIL. Acute postoperative respiratory insufficiency with h/o asthma - Kept intubated overnight d/t resp acidosis secondary to pain/atelectasis. Successfully extubated POD#1. Pre-op Advair continued with PRN BRIAN for periodic wheezing. Acute expected blood loss anemia - Stable. No transfusions required. No evidence active bleeding. VTE prophylaxis with SQ hep. Ventral hernia - Incidental discovery when preparing for chest tube placement. Large defect repaired with mesh. Subjective: Having some difficulty taking deep-breaths d/t left sided chest pain. Nebulizer treatment helped with wheezing. Hopeful to be discharged home. Objective: Vital Signs Temp Pulse Resp BP Pulse Ox 36.4 C 67 20 120/66 95 06/02/17 04:00 06/02/17 04:00 06/02/17 04:00 06/02/17 04:00 06/02/17 04:00 Laboratory Results 06/02/17 06:35 06/02/17 06:35 06/01/17 06/02/17 06/03/17 05:59 05:59 05:59 Intake Total 750 1270 Output Total 1530.5 685 Balance -780.5 585 Physical Exam - Physical Exam General Appearance: WD/WN, alert, no apparent distress EENT: No scleral icterus (R), No scleral icterus (L) Neck: normal inspection Respiratory: wheezing, No respiratory distress, No accessory muscle use Cardiac/Chest: regular rate, rhythm, irregularly irregular Abdomen: non-tender, soft, No distended Skin: normal color, warm/dry Extremities: pedal edema Neuro/Psych: no motor/sensory deficits, alert, normal mood/affect, oriented x 3 ICD10 Worksheet Patient Problems: Problems Problem Status Onset Chest pain Acute Occluded coronary artery stent Acute Postoperative atrial fibrillation Acute S/P CABG x 2 Acute ~05/29/17 S/P ventral herniorrhaphy Acute ~05/29/17 Ventral hernia Chronic AVNRT (AV moe re-entry tachycardia) Acute Atrial flutter Acute Decrease in appetite Acute Dyspnea Acute Generalized weakness Acute Nausea Acute Syncope Acute
[2017-06-02] MEDS: FLUTICASONE/SALMETER 250/50MCG DISKUS IH SCH ×2 (08:50→20:37)
[2017-06-02] MEDS ORDERED: FUROSEMIDE 40 MG TAB PO SCH (09:15)
[2017-06-02] MEDS ORDERED: POTASSIUM CL 20 MEQ TAB PO SCH (09:15)
[2017-06-02] MEDS ORDERED: ALBUTEROL 60 PUFFS/8 GM MDI IH PRN (09:17)
[2017-06-02] MEDS: PANTOPRAZOLE SODIUM 40 MG TAB PO SCH (10:12)
[2017-06-02] MEDS: CALCIUM CARBONATE 500 MG TAB PO SCH ×2 (10:12→12:33)
[2017-06-02] MEDS: ASPIRIN EC 81 MG TAB PO SCH (10:12)
[2017-06-02] MEDS: ROSUVASTATIN CALCIUM 10 MG TAB PO SCH (10:13)
[2017-06-02] MEDS: METOPROLOL TARTRATE 25 MG TAB PO SCH ×3 (10:17→21:37)
[2017-06-02] MEDS: SENNOSIDES/DOCUSATE SODIUM TAB PO SCH ×2 (10:18→20:32)
[2017-06-02] MEDS ORDERED: METOPROLOL TARTRATE 25 MG TAB PO ONE (10:36)
[2017-06-02] MEDS: FERROUS SULFATE 325 MG TAB PO SCH (10:42)
[2017-06-02] MEDS: ASCORBIC ACID 500 MG TAB PO SCH (10:43)
--- NOTE | 2017-06-02 12:31 | SOAPPROG ---
SOAP Progress Note Assessment/Plan: Assessment: Plan: Subjective: Afebrile VSS Afib last night but NSR now UO 475cc/12hr BMP nl weight 8kg>preop Wound clean Lungs diminished bases Cor RRR Plan - increase diuresis, po amio Objective: Vital Signs Temp Pulse Resp BP Pulse Ox 36.6 C 63 22 H 115/67 96 06/02/17 11:18 06/02/17 11:18 06/02/17 11:18 06/02/17 11:18 06/02/17 11:18 Laboratory Results 06/02/17 06:35 06/02/17 06:35 06/01/17 06/02/17 06/03/17 05:59 05:59 05:59 Intake Total 750 1270 Output Total 1530.5 685 270 Balance -780.5 585 -270 ICD10 Worksheet Patient Problems: Problems Problem Status Onset Chest pain Acute Occluded coronary artery stent Acute Postoperative atrial fibrillation Acute S/P CABG x 2 Acute ~05/29/17 S/P ventral herniorrhaphy Acute ~05/29/17 Ventral hernia Chronic AVNRT (AV moe re-entry tachycardia) Acute Atrial flutter Acute Decrease in appetite Acute Dyspnea Acute Generalized weakness Acute Nausea Acute Syncope Acute
[2017-06-02] MEDS: AMIODARONE HCL 200 MG TAB PO SCH ×2 (12:34→20:48)
[2017-06-02] MEDS: BISACODYL 10 MG SUPP PR PRN (12:35)
[2017-06-02] MEDS: POTASSIUM CL 20 MEQ TAB PO SCH (14:43)
[2017-06-02] MEDS: FUROSEMIDE 40 MG TAB PO SCH (14:43)
[2017-06-02] MEDS: ALBUTEROL 200 PUFFS/18 GM MDI IH PRN (14:43)
[2017-06-02] MEDS ORDERED: AMIODARONE HCL 100 ML IV ONE (20:03)
[2017-06-02 20:35] LABS: POTASSIUM 3.4 mEq/L (3.5-5.2)
[2017-06-02] MEDS ORDERED: METOPROLOL TARTRATE 25 MG TAB PO SCH ×2 (21:00)
[2017-06-02] MEDS ORDERED: ENOXAPARIN 30 MG/0.3 ML SYR SC SCH (21:00)
[2017-06-02] MEDS: POTASSIUM Cl (KCl) 50 ML IV SCH ×2 (22:04→23:12)
[2017-06-03] MEDS: POTASSIUM Cl (KCl) 50 ML IV SCH (00:16)
[2017-06-03] MEDS: ALBUTEROL 200 PUFFS/18 GM MDI IH PRN (00:28)
[2017-06-03 04:59] LABS: POTASSIUM 4.8 mEq/L (3.5-5.2)
[2017-06-03] MEDS: METOCLOPRAMIDE 10 MG/2 ML VIAL IVP PRN (05:15)
[2017-06-03] MEDS: traMADol 50 MG TAB PO PRN ×2 (05:16→20:16)
--- NOTE | 2017-06-03 08:02 | SOAPPROG ---
SOAP Progress Note Assessment/Plan: Assessment: Plan: Subjective: Afebrile NSR Afib last pm Weight down 2kg Feels better Wound clean Lungs clear Cor RRR No ankle edema Plan - home 1-2 days K+4.8 Objective: Vital Signs Temp Pulse Resp BP Pulse Ox 36.7 C 61 20 111/52 L 98 06/03/17 07:32 06/03/17 07:32 06/03/17 07:32 06/03/17 07:32 06/03/17 07:32 Laboratory Results 06/02/17 06:35 06/03/17 04:20 06/02/17 06/03/17 06/04/17 05:59 05:59 05:59 Intake Total 1270 1610 Output Total 870 8570 Balance 585 -1260 ICD10 Worksheet Patient Problems: Problems Problem Status Onset Chest pain Acute Occluded coronary artery stent Acute Postoperative atrial fibrillation Acute S/P CABG x 2 Acute ~05/29/17 S/P ventral herniorrhaphy Acute ~05/29/17 Ventral hernia Chronic AVNRT (AV moe re-entry tachycardia) Acute Atrial flutter Acute Decrease in appetite Acute Dyspnea Acute Generalized weakness Acute Nausea Acute Syncope Acute
[2017-06-03] MEDS: POTASSIUM CL 20 MEQ TAB PO SCH ×2 (08:32→15:41)
[2017-06-03] MEDS: ASCORBIC ACID 500 MG TAB PO SCH (08:32)
[2017-06-03] MEDS: FERROUS SULFATE 325 MG TAB PO SCH (08:32)
--- NOTE | 2017-06-03 08:32 | SOAPPROG ---
SOAP Progress Note Assessment/Plan: POD#5 CABG x 2 (CLOUD-LAD, SV-D1), open vein harvest left thigh, prophylactic AtriClip ligation left atrial appendage, mesh repair of incidental ventral hernia Sx CAD/ISR LAD - s/p CABG2. Secondary prevention with ASA, BB, and statin when appropriate. Plavix discontinued as stents occluded. ISCM - Preop LVEF 45%. Preserved systolic fx post revasc. Early postop hemodynamics optimized with IVF and low dose dopa. No tachyarrhythmias or backup pacing. 9kg fluid overload with stable renal fx. Staggered intro of heart failure regimen as appropriate. Hx Aflutter/AVNRT ablation with post-operative paroxysmal GEORGIE - Conversion to SR with amiodarone gtt protocol. Continue BB/PO amiodarone. Thromboprophylaxis with Eliquis. Acute postoperative respiratory insufficiency with h/o asthma - Kept intubated overnight d/t resp acidosis secondary to pain/atelectasis. Successfully extubated POD#1. Pre-op Advair continued with PRN BRIAN for periodic wheezing. Acute expected blood loss anemia - Stable. No transfusions required. No evidence active bleeding. VTE prophylaxis with SQ hep. Ventral hernia - Incidental discovery when preparing for chest tube placement. Large defect repaired with mesh. Stable. Subjective: Feels well. Breathing better. Hopeful for home Monday. Objective: Vital Signs Temp Pulse Resp BP Pulse Ox 36.7 C 61 20 111/52 L 98 06/03/17 07:32 06/03/17 07:32 06/03/17 07:32 06/03/17 07:32 06/03/17 07:32 Laboratory Results 06/02/17 06:35 06/03/17 04:20 06/02/17 06/03/17 06/04/17 05:59 05:59 05:59 Intake Total 1270 1610 Output Total 685 2870 100 Balance 585 -1260 -100 Physical Exam - Physical Exam General Appearance: WD/WN, alert, no apparent distress EENT: No scleral icterus (R), No scleral icterus (L) Neck: normal inspection Respiratory: No respiratory distress Cardiac/Chest: regular rate, rhythm, irregularly irregular Abdomen: non-tender, soft, No distended Skin: normal color, warm/dry Extremities: pedal edema Neuro/Psych: no motor/sensory deficits, alert, normal mood/affect, oriented x 3 ICD10 Worksheet Patient Problems: Problems Problem Status Onset Chest pain Acute Occluded coronary artery stent Acute Postoperative atrial fibrillation Acute S/P CABG x 2 Acute ~05/29/17 S/P ventral herniorrhaphy Acute ~05/29/17 Ventral hernia Chronic AVNRT (AV moe re-entry tachycardia) Acute Atrial flutter Acute Decrease in appetite Acute Dyspnea Acute Generalized weakness Acute Nausea Acute Syncope Acute
[2017-06-03] MEDS: ASPIRIN EC 81 MG TAB PO SCH (08:33)
[2017-06-03] MEDS: PANTOPRAZOLE SODIUM 40 MG TAB PO SCH (08:33)
[2017-06-03] MEDS: AMIODARONE HCL 200 MG TAB PO SCH ×2 (08:33→20:16)
[2017-06-03] MEDS: METOPROLOL TARTRATE 25 MG TAB PO SCH ×2 (08:33→20:17)
[2017-06-03] MEDS: FUROSEMIDE 40 MG TAB PO SCH ×2 (08:34→15:41)
[2017-06-03] MEDS: ROSUVASTATIN CALCIUM 10 MG TAB PO SCH (08:34)
[2017-06-03] MEDS: CALCIUM CARBONATE 500 MG TAB PO SCH ×2 (08:35→11:38)
[2017-06-03] MEDS: SENNOSIDES/DOCUSATE SODIUM TAB PO SCH ×2 (08:36→23:21)
[2017-06-03] MEDS: FLUTICASONE/SALMETER 250/50MCG DISKUS IH SCH ×2 (08:36→22:03)
[2017-06-03] MEDS: APIXABAN 2.5 MG TAB PO SCH ×2 (11:38→20:16)
[2017-06-04] MEDS: traMADol 50 MG TAB PO PRN ×3 (04:37→20:37)
[2017-06-04 04:52] LABS: HEMATOCRIT 26.7 % (38.0-47.0); HEMOGLOBIN 8.8 g/dL (12.6-16.3); RED BLOOD CELL COUNT 2.84 10^6/uL (4.18-5.33); RED CELL DISTRIBUTION WIDTH 14.3 % (11.5-15.2)
[2017-06-04 05:02] LABS: ANION GAP 9 mEq/L (8-16); CALCIUM 8.6 mg/dL (8.5-10.4); CARBON DIOXIDE 28 mEq/l (22-31); CHLORIDE 97 mEq/L (97-110); CREATININE 0.7 mg/dL (0.6-1.0); GLOMERULAR FILTRATION RATE > 60; GLUCOSE 95 mg/dL (70-100); POTASSIUM 3.9 mEq/L (3.5-5.2); SODIUM 134 mEq/L (134-144)
[2017-06-04] MEDS: BISACODYL 10 MG SUPP PR PRN (06:10)
--- NOTE | 2017-06-04 07:36 | SOAPPROG ---
SOAP Progress Note Assessment/Plan: POD#6 CABG x 2 (CLOUD-LAD, SV-D1), open vein harvest left thigh, prophylactic AtriClip ligation left atrial appendage, mesh repair of incidental ventral hernia Sx CAD/ISR LAD - s/p CABG2. Secondary prevention with ASA, BB, and statin when appropriate. Plavix discontinued as stents occluded. ISCM - Preop LVEF 45%. Preserved systolic fx post revasc. Early postop hemodynamics optimized with IVF and low dose dopa. No tachyarrhythmias or backup pacing. 7kg fluid overload with stable renal fx. Staggered intro of heart failure regimen as appropriate. Hx Aflutter/AVNRT ablation with post-operative paroxysmal GEORGIE - Conversion to SR with amiodarone gtt protocol. Continue BB/PO amiodarone. Thromboprophylaxis with Eliquis. Acute postoperative respiratory insufficiency with h/o asthma - Kept intubated overnight d/t resp acidosis secondary to pain/atelectasis. Successfully extubated POD#1. Pre-op Advair continued with prn BRIAN for periodic wheezing. Acute expected blood loss anemia - Stable. No transfusions required. No evidence active bleeding. VTE prophylaxis with Eliquis. Ventral hernia - Incidental discovery when preparing for chest tube placement. Large defect repaired with mesh. Stable. Subjective: Breathing better. Feeling more mobile. Ready to get home tomorrow. Objective: Vital Signs Temp Pulse Resp BP Pulse Ox 36.6 C 64 18 106/54 L 96 06/04/17 07:12 06/04/17 07:12 06/04/17 07:12 06/04/17 07:12 06/04/17 07:12 Laboratory Results 06/04/17 04:35 06/04/17 04:35 06/03/17 06/04/17 06/05/17 05:59 05:59 05:59 Intake Total 1610 1400 Output Total 2870 1650 Balance -1260 -250 Physical Exam - Physical Exam General Appearance: WD/WN, alert, no apparent distress EENT: No scleral icterus (R), No scleral icterus (L) Neck: normal inspection Respiratory: No respiratory distress Cardiac/Chest: regular rate, rhythm Abdomen: non-tender, soft, No distended Skin: normal color, warm/dry Extremities: No pedal edema Neuro/Psych: no motor/sensory deficits, alert, normal mood/affect, oriented x 3 ICD10 Worksheet Patient Problems: Problems Problem Status Onset Chest pain Acute Occluded coronary artery stent Acute Postoperative atrial fibrillation Acute S/P CABG x 2 Acute ~05/29/17 S/P ventral herniorrhaphy Acute ~05/29/17 Ventral hernia Chronic AVNRT (AV moe re-entry tachycardia) Acute Atrial flutter Acute Decrease in appetite Acute Dyspnea Acute Generalized weakness Acute Nausea Acute Syncope Acute
[2017-06-04] MEDS: POTASSIUM CL 20 MEQ TAB PO SCH ×2 (08:49→15:33)
[2017-06-04] MEDS: ASCORBIC ACID 500 MG TAB PO SCH (08:49)
[2017-06-04] MEDS: FUROSEMIDE 40 MG/4 ML VIAL IVP SCH ×2 (08:49→15:33)
[2017-06-04] MEDS: CHOLECALCIFEROL VIT D3 2,000 UNITS TAB/CAP PO SCH (08:50)
[2017-06-04] MEDS: CALCIUM CARBONATE 500 MG TAB PO SCH ×2 (08:50→13:01)
[2017-06-04] MEDS: FERROUS SULFATE 325 MG TAB PO SCH (08:50)
[2017-06-04] MEDS: ROSUVASTATIN CALCIUM 10 MG TAB PO SCH (08:50)
[2017-06-04] MEDS: ASPIRIN EC 81 MG TAB PO SCH (08:50)
[2017-06-04] MEDS: METOPROLOL TARTRATE 25 MG TAB PO SCH ×2 (08:51→20:32)
[2017-06-04] MEDS: PANTOPRAZOLE SODIUM 40 MG TAB PO SCH (08:51)
[2017-06-04] MEDS: AMIODARONE HCL 200 MG TAB PO SCH ×2 (08:51→20:33)
[2017-06-04] MEDS: APIXABAN 2.5 MG TAB PO SCH ×2 (08:51→20:33)
[2017-06-04] MEDS ORDERED: FUROSEMIDE 40 MG TAB PO SCH (09:00)
[2017-06-04] MEDS: SENNOSIDES/DOCUSATE SODIUM TAB PO SCH ×2 (09:19→20:33)
[2017-06-04] MEDS: FLUTICASONE/SALMETER 250/50MCG DISKUS IH SCH ×2 (09:26→20:10)
--- NOTE | 2017-06-05 06:52 | SOAPPROG ---
SOAP Progress Note Assessment/Plan: Assessment: POD#7 CABG x 2 (CLOUD-LAD, SV-D1), open vein harvest left thigh, prophylactic AtriClip ligation left atrial appendage, mesh repair of incidental ventral hernia Sx CAD/ISR LAD - s/p CABG2. Secondary prevention with ASA, BB, and statin. Plavix discontinued as stents occluded. ISCM - Preop LVEF 45%. Preserved systolic fx post revasc. Early postop hemodynamics optimized with IVF and low dose dopa. No bradyarrhythmias or backup pacing. 10kg fluid overload diuresed with stable renal fx. Staggered intro of heart failure regimen as appropriate. Postop PAF - Hx Aflutter/AVNRT ablation. PAF POD#3-4 treated with amio and escalating BB as tolerated. SB/SR maintained last 72h. Thromboprophylaxis with Eliquis. Acute postoperative respiratory insufficiency - Hx of RAD. Kept intubated overnight d/t resp acidosis secondary to pain/atelectasis. Successfully extubated POD#1. Steady reduction in suppl O2 needs. Home MDI resumed. Acute expected blood loss anemia - Stable. No transfusions required. No evidence active bleeding. VTE prophylaxis with Eliquis. Ventral hernia - Incidental discovery when preparing for chest tube placement. Large defect successfully repaired with mesh. Postop nausea - Persistent lowgrade nausea req intermittent anti-emetics. No evidence ileus. Likely meds. Plan: Stop amiodarone. Stop iron suppl. Ok for discharge later today. Instructions re diet, meds, activity, f/u and wound care to be reviewed in presence of . 06/05/17 06:47 Subjective: Doing ok. Lots of questions, admitting nervous about leaving hospital. Regular BMs. Objective: Vital Signs Temp Pulse Resp BP Pulse Ox 36.7 C 66 18 98/53 L 93 06/05/17 04:00 06/05/17 04:00 06/05/17 04:00 06/05/17 04:00 06/05/17 04:00 Laboratory Results 06/04/17 04:35 06/04/17 04:35 06/04/17 06/05/17 06/06/17 05:59 05:59 05:59 Intake Total 1400 990 Output Total 1650 4025 Balance -250 -3035 HR well controlled. Downward trending BP s/p vigorous diuresis yest on IV lasix. Now 4 lbs above baseline wt. RA trial off O2 yest unsuccessful. Physical Exam - Physical Exam General Appearance: alert, no apparent distress Respiratory: decreased breath sounds (bases) Cardiac/Chest: regular rate, rhythm, other (Sternotomy and LLE venotomy healing well.) Abdomen: soft Skin: warm/dry Extremities: swelling (trace) ICD10 Worksheet Patient Problems: Problems Problem Status Onset Chest pain Acute Occluded coronary artery stent Acute Postoperative atrial fibrillation Acute S/P CABG x 2 Acute ~05/29/17 S/P ventral herniorrhaphy Acute ~05/29/17 Ventral hernia Chronic AVNRT (AV moe re-entry tachycardia) Acute Atrial flutter Acute Decrease in appetite Acute Dyspnea Acute Generalized weakness Acute Nausea Acute Syncope Acute
[2017-06-05 07:49] VITALS: TEMP 98.7
[2017-06-05] MEDS: CALCIUM CARBONATE 500 MG TAB PO SCH ×2 (07:52→12:51)
[2017-06-05] MEDS ORDERED: METOPROLOL TARTRATE 25 MG TAB PO ONE (08:15)
[2017-06-05] MEDS: METOPROLOL TARTRATE 25 MG TAB PO SCH (08:59)
[2017-06-05] MEDS ORDERED: SENNOSIDES/DOCUSATE SODIUM TAB PO PRN (09:00)
[2017-06-05] MEDS: ASPIRIN EC 81 MG TAB PO SCH (09:21)
[2017-06-05] MEDS: ROSUVASTATIN CALCIUM 10 MG TAB PO SCH (09:21)
[2017-06-05] MEDS: APIXABAN 2.5 MG TAB PO SCH (09:21)
[2017-06-05] MEDS: FLUTICASONE/SALMETER 250/50MCG DISKUS IH SCH (09:44)
[2017-06-05] MEDS: ASCORBIC ACID 500 MG TAB PO SCH ×2 (09:49→12:52)
[2017-06-05] MEDS ORDERED: FUROSEMIDE 20 MG TAB PO SCH (12:00)
[2017-06-05 12:03] VITALS: BP 106/55; PULSE 73; RESP 16; O2SAT 92
--- NOTE | 2017-06-05 12:35 | PDHOMEO2F ---
Home Oxygen Face to Face Home Orders: I certify that a physician or a nurse practitioner or physician's assistant center director has had a [id number] encounter with this patient on the date of this order due to the diagnosis listed, which relates to the primary reason the patient requires home oxygen. Alternative treatments have been tried, or considered, and deemed ineffective. It is anticipated that supplemental oxygen will result in improvement with treatment. Home oxygen qualifying diagnosis: CAD Home oxygen secondary diagnosis: bilateral pleural effusions, ischemic cardiomyopathy, asthma SpO2 on room air (%): 87 Frequency of home oxygen needed: continuous Home oxygen liters per minute: 1-2 Home oxygen delivery device: nasal cannula Concentrator: Yes E-tanks for mobility and back up: Yes If ordering portable O2, is the patient mobile in the home?: Yes I certify that, based on these findings, the home oxygen is medically necessary for this patient for the following length of time. Length of time home oxygen needed: 1 month (2 - 4 wks)
[2017-06-05] MEDS: CHOLECALCIFEROL VIT D3 2,000 UNITS TAB/CAP PO SCH (12:51)
--- NOTE | 2017-06-05 19:34 | PDDCSUM ---
Discharge Summary Discharge Summary: DATE OF ADMISSION: 05/26/17 DATE OF DISCHARGE: 06/05/17 DISPOSITION: Home, self-care PRINCIPAL ADMISSION DIAGNOSIS: Exertional angina PRINCIPAL DISCHARGE DIAGNOSES: 1. Coronary artery disease with an occluded LAD stent 2. Ischemic cardiomyopathy 3. Status post coronary artery bypass grafting x 2 4. Status post prophylactic AtriClip ligation of the left atrial appendage 5. Status post mesh repair of an incidental ventral hernia 6. Acute expected blood loss anemia 7. Acute postoperative respiratory insufficiency 8. Postoperative paroxysmal atrial fibrillation HISTORY OF PRESENT ILLNESS: 71 yo female with an LAD stent and recurrent angina, admitted for elective coronary angiography after an abnormal exercise treadmill test. Found to have a totally occluded stent, a totally occluded principal diagonal branch, collateralized distal LAD/Dx flow, an LVEDP of 13 and an LVEF of 45%. Referred for surgical revascularization. Preop imaging negative for prohibitive neurologic risk. PERTINENT PAST MEDICAL HISTORY: 1. CAD s/p MERCED of mid LAD Aug 2016. Maintained on DAPT. 2. Ischemic cardiomyopathy - anteroapical hypokinesis with LVEF 45% at time of stenting. 3. Atrial flutter s/p AVNRT ablation. LINQ monitor surveillance. 4. Mild carotid atherosclerosis 5. HTN 6. Hyperlipidemia 7. Reactive airways disease 8. DVT 1990s MEDICATIONS ON ADMISSION: ASA 81 mg daily, Plavix 75 mg daily, Bystolic 2.5 mg daily, Crestor 5 mg daily, Advair 250/50 one puff IH BID, Vit D3 10,000 units MWF, Vit C 1,000 mg daily, Calcium carbonate 500 mg BID, herbal supplement daily DRUG ALLERGIES/SENSITIVITIES: Atorvastatin causing myalgias CONSULTANTS: CV surgery ([facility]me), Pulmonology/critical care ([facility]) PROCEDURES/IMAGIN/18 (Nico): Left heart catheterization with selective coronary angiography and left ventriculogram. Access via right common femoral artery. 05/27 Carotid US: mild plaquing, no significant progressive disease. 05/29 (Ame): Coronary artery bypass grafting x 2 (CLOUD-LAD, SV-D1). Takedown left internal mammary artery. Open vein harvest left thigh. Prophylactic AtriClip ligation of the left atrial appendage. Mesh repair of incidental ventral hernia ABBREVIATED HOSPITAL COURSE BY ACTIVE PROBLEM LIST: 1. Sx CAD/ISR LAD - s/p CABG of LAD and jailed diagonal branch. Secondary prevention with ASA, BB, and statin. Plavix discontinued as stent occluded. 2. ISCM - Preserved systolic fx post revasc. Early postop hemodynamics optimized with IVF and low dose dopa. No bradyarrhythmias or backup pacing. 10kg fluid overload diuresed with stable renal fx. Staggered intro of heart failure regimen as appropriate. 3. Postop PAF - AF w VVR POD#3-4. SR restored with amio and escalating BB as tolerated. Ongoing use of amio limited by nausea. Thromboprophylaxis with Eliquis for [id number] score of 4. 4. Acute postoperative respiratory insufficiency - Kept intubated overnight d/t resp acidosis secondary to pain/atelectasis. Successfully extubated POD#1. Steady reduction in suppl O2 needs without significant pulmonary physiotherapy. Home MDI resumed. 5. Acute expected blood loss anemia - Stable s/p 1u PRBC. H/H > 8/26 maintained. Use of Fe suppl limited by GI bloating. 6. Ventral hernia - Incidental discovery when preparing for chest tube placement. Large defect successfully repaired with mesh. DISCHARGE CLINICAL INFORMATION: Sternum grossly stable. Sternotomy and LLE venotomy CDI, sutured, +Dermabond. HR 60s-70s. SBP 100s. SpO2 87% RA, correcting to >92 % on 1.5-2 Lpm O2. Wt 1.4 kg above admission at 78.5 kilos. WBC 8.3, Hgb 8.8, HCT 26.7, Plt 290, Na 134, K 3.9, Cr 0.7 DISCHARGE MEDICATIONS: As on admission with the following adjustments: 1. Discontinue Plavix. 2. Hold Bystolic. NEW prescriptions: 1. Eliquis 2.5 mg BID. 2. Metoprolol 25 mg BID. 3. Lasix 20 mg daily until back to baseline weight and no swelling. 4. Tramadol 50 mg one-half to two tabs q 6-8hrs prn incisional discomfort. 5. Oxygen continuously @ 1 Lpm rest and 2 Lpm activity, or as directed by SpO2. FOLLOW UP APPOINTMENTS: 1. CV surgery: with Dr Mccloud at [facility] on 06/13 at 10:30 am. 2. Cardiology: with Dr Leiva at [facility] within 4-6 weeks. Appointment to be established during surgical visit. FOLLOW UP TESTING: CXR prior to surgical appointment.
== END 2017-06-05 17:46 | disposition home or self-care (01) | DRG 234 ==
LOC: F2W 15:50 → OBSVTOIN 05-27 12:40 → F2N 05-29 08:36 → F2W 06-01 15:00
PROVIDERS: ADMIT Internal Medicine Interventional Cardiology; ATTEND Thoracic Surgery (Cardiothoracic Vascular Surgery)
PROC: 4A023N7 Measurement of Cardiac Sampling and Pressure, Left Heart, Percutaneous Approach (ICD-10-PCS; 2017-05-27)
PROC: B246ZZ4 Ultrasonography of Right and Left Heart, Transesophageal (ICD-10-PCS; 2017-05-27)
PROC: B2111ZZ Fluoroscopy of Multiple Coronary Arteries using Low Osmolar Contrast (ICD-10-PCS; 2017-05-27)
PROC: 0WUF0JZ Supplement Abdominal Wall with Synthetic Substitute, Open Approach (ICD-10-PCS; principal; 2017-05-29 07:15)
PROC: 06BQ0ZZ Excision of Left Saphenous Vein, Open Approach (ICD-10-PCS; principal; 2017-05-29 07:15)
PROC: 02L70CK Occlusion of Left Atrial Appendage with Extraluminal Device, Open Approach (ICD-10-PCS; principal; 2017-05-29 07:15)
PROC: 02100Z9 Bypass Coronary Artery, One Artery from Left Internal Mammary, Open Approach (ICD-10-PCS; principal; 2017-05-29 07:15)
PROC: 021009W Bypass Coronary Artery, One Artery from Aorta with Autologous Venous Tissue, Open Approach (ICD-10-PCS; principal; 2017-05-29 07:15)
PROC: 5A1221Z Performance of Cardiac Output, Continuous (ICD-10-PCS; principal; 2017-05-29 07:15)
DX: T82.855A Stenosis of coronary artery stent, initial encounter (principal); I25.110 Atherosclerotic heart disease of native coronary artery with unstable angina pectoris; I25.82 Chronic total occlusion of coronary artery; J98.11 Atelectasis; D62 Acute posthemorrhagic anemia; I48.0 Paroxysmal atrial fibrillation; K43.9 Ventral hernia without obstruction or gangrene; R11.0 Nausea; I25.5 Ischemic cardiomyopathy; J45.909 Unspecified asthma, uncomplicated; I10 Essential (primary) hypertension; E78.5 Hyperlipidemia, unspecified; Z79.82 Long term (current) use of aspirin
CPT/HCPCS: 82947-QW; 92507-GN; 92523-GN; 92526-GN; 92610-GN; 97110-GP; 97116-GP; 97161-GP; 97166-GO; 97530-GO; 97530-GP; 97535-GO; C1781; G0378; G8978-GP-CK; G8979-GP-CI; G8980-GP-CI; G8987-GO-CK; G8988-GO-CI; G8989-GO-CI; G8996-GN-CJ; G8997-GN-CI; G8998-GN-CH; G9165-GN-CJ; G9166-GN-CI; G9167-GN-CI; J0153; J0282; J0583; J0690; J1100; J1265; J1644; J1650; J1815; J1885; J1940; J2001; J2060; J2150; J2250; J2260; J2370; J2405; J2440; J2704; J2720; J2765; J2930; J3010; J7060; P9016; P9041; Q9967

== ENCOUNTER → 2017-06-09 | Outpatient (CLI) | payer OTHER | LOC: FIMAGING 09:10 | PROVIDERS: ATTEND Thoracic Surgery (Cardiothoracic Vascular Surgery) | DX: J90 Pleural effusion, not elsewhere classified (principal); Z95.1 Presence of aortocoronary bypass graft ==

== ENCOUNTER → 2017-06-14 | Outpatient (CLI) | payer OTHER | LOC: FLAB 14:52 → EDSTATUS 14:53 → FIMAGING 14:54 | PROVIDERS: ATTEND Thoracic Surgery (Cardiothoracic Vascular Surgery) | DX: J90 Pleural effusion, not elsewhere classified (principal); J98.11 Atelectasis; Z95.1 Presence of aortocoronary bypass graft ==

== ENCOUNTER → 2017-06-26 | Outpatient (CLI) | payer OTHER | LOC: FIMAGING 11:30 | PROVIDERS: ATTEND Thoracic Surgery (Cardiothoracic Vascular Surgery) | DX: Z95.1 Presence of aortocoronary bypass graft (principal); J90 Pleural effusion, not elsewhere classified ==

== ENCOUNTER → 2017-07-26 | Outpatient (CLI) | payer OTHER | LOC: FIMAGING 11:28 | PROVIDERS: ATTEND Thoracic Surgery (Cardiothoracic Vascular Surgery) | DX: J90 Pleural effusion, not elsewhere classified (principal); J98.11 Atelectasis; Z95.1 Presence of aortocoronary bypass graft ==